=== PATIENT | male | born 1960 | race Caucasian/White ===

== ENCOUNTER 2017-12-16 08:42 | Emergency (ER) | payer OTHER ==
[2017-12-16 09:03] VITALS: BP 121/87
--- NOTE | 2017-12-16 09:29 | UC ---
Abdominal Pain Male HPI - HPI Summary HPI Summary: 56 yo male has had mild waxing and waning LLQ abd pain x 4 weeks 3-4 days ago the pain worsened and became constant yesterday he felt ill but no f/c (had malaise and mild myalgias) He has had diverticulitis x 2 and this feels similar never admitted for diverticulitis has had a colonoscopy - History of Current Complaint Chief Complaint: UCAbdominalPain Stated Complaint: ABD PAIN Time Seen by Provider: 12/16/17 09:14 Hx Obtained From: Patient Onset/Duration: Gradual Onset, Lasting Weeks Timing: Constant Severity Initially: Mild Severity Currently: Mild Pain Intensity: 4 Pain Scale Used: 0-10 Numeric Location: Discrete At: LLQ Radiates: No Character: Aching, Colicy Aggravating Factor(s): Other - touch Associated Signs And Symptoms: Positive: Negative Similar Episode/Dx As:: diverticulitis - Allergies/Home Medications Allergies/Adverse Reactions: Allergies Allergy/AdvReac Type Severity Reaction Status Date / Time No Known Allergies Allergy Verified 12/16/17 08:50 Home Medications: Home Medications Acetaminophen [Acetaminophen Extra Stren] 1 tab PO Q8HR PRN 12/16/17 [History Confirmed 12/16/17] Gabapentin CAP(*) [Neurontin 300 CAP(*)] 300 mg PO TID 12/16/17 [History Confirmed 12/16/17] LORazepam TAB(*) [Ativan 0.5 MG TAB (*)] 0.5 tab PO BID PRN 12/16/17 [History Confirmed 12/16/17] Lamotrigine [Lamictal] 25 mg PO BEDTIME 12/16/17 [History Confirmed 12/16/17] Olanzapine [Zyprexa] 1.25 mg PO BEDTIME 12/16/17 [History Confirmed 12/16/17] PMH/Surg Hx/FS Hx/Imm Hx Previously Healthy: Yes GI/ History: Diverticulitis Psychological History: Anxiety - Surgical History Surgical History: None - Family History Known Family History: Positive: Hypertension - Social History Alcohol Use: Weekly Alcohol Amount: "Few times weekly" Substance Use Type: Prescribed Smoking Status (MU): Never Smoked Tobacco Review of Systems Constitutional: Negative Skin: Negative Eyes: Negative ENT: Negative Respiratory: Negative Cardiovascular: Negative Gastrointestinal: Abdominal Pain Genitourinary: Negative Motor: Negative Neurovascular: Negative Musculoskeletal: Negative Neurological: Negative Psychological: Negative Is Patient Immunocompromised?: No All Other Systems Reviewed And Are Negative: Yes Physical Exam Triage Information Reviewed: Yes Appearance: Well-Appearing, No Pain Distress, Well-Nourished Vital Signs: Initial Vital Signs Temp 97.2 F 12/16/17 08:55 Pulse 80 12/16/17 08:55 Resp 18 12/16/17 08:55 BP 121/87 12/16/17 08:55 Pulse Ox 97 12/16/17 08:55 Vital Signs Reviewed: Yes Eyes: Positive: Conjunctiva Clear ENT: Positive: Hearing grossly normal. Negative: Nasal congestion, Nasal drainage, Trismus, Muffled voice, Hoarse voice Neck: Positive: Supple, Nontender Respiratory: Positive: Lungs clear, Normal breath sounds, No respiratory distress, No accessory muscle use Cardiovascular: Positive: RRR, No Murmur Abdomen Description: Positive: Soft. Negative: Nontender - markedly tender only LLQ, CVA Tenderness (R), CVA Tenderness (L), Hernia @, Peritoneal Signs, Pulsatile Mass, Splenomegaly Musculoskeletal: Positive: ROM Intact, No Edema Neurological Exam: Normal Neurological: Positive: Alert Psychological Exam: Normal Skin Exam: Normal Abd Pain Male Course/Dx - Course Course Of Treatment: pt declines CT at this point. states he will return for worsening symptoms - Differential Dx/Clinical Impression Provider Diagnoses: diverticulitis Discharge - Discharge Plan Condition: Stable Disposition: HOME Prescriptions: Ciprofloxacin TAB* [Cipro 750 MG Tab*] 750 mg PO BID #14 tab Metronidazole [Flagyl 500 MG TAB] 500 mg PO QID #28 tab Patient Education Materials: Diverticulitis (ED) Referrals: Anton Magaña MD [Primary Care Provider] - 1 Day Additional Instructions: to ER for new or worsening symptoms or if not significantly improved in 48-72 hours I suggest you get rechecked tomorrow. You may return here if unable to get in to see your MD.
[2017-12-16] MEDS ORDERED: Ciprofloxacin TAB* 500 MG PO ONE (09:30)
[2017-12-16] MEDS ORDERED: Ciprofloxacin TAB* 250 MG PO ONE (09:30)
[2017-12-16] MEDS ORDERED: metroNIDAZOLE TAB* 250 MG PO ONE ×2 (09:31→09:34)
== END 2017-12-16 10:01 | disposition home or self-care (01) ==
LOC: UCEAST 08:42
DX: K57.92 Diverticulitis of intestine, part unspecified, without perforation or abscess without bleeding (principal)
CPT/HCPCS: 81003; 99212; A9270-GY; G0463

== ENCOUNTER 2017-12-17 08:58 | Emergency (ER) | payer OTHER ==
[2017-12-17 09:17] VITALS: BP 121/78
--- NOTE | 2017-12-17 10:44 | UC ---
Abdominal Pain Male HPI - HPI Summary HPI Summary: seen here yesterday with provisional dx of diverticulitis returns here for re check states he feels michelle no n/v/d no f/c had 30 minutes of LLQ pain around 2 AM - History of Current Complaint Chief Complaint: UCAbdominalPain Stated Complaint: FOLLOW UP Time Seen by Provider: 12/17/17 09:37 Hx Obtained From: Patient Onset/Duration: Sudden Onset, Lasting Days Timing: Constant Severity Initially: Moderate Severity Currently: None Pain Intensity: 0 Pain Scale Used: 0-10 Numeric Location: Discrete At: LLQ - pain free usually unless he bends over or touches area - Allergies/Home Medications Allergies/Adverse Reactions: Allergies Allergy/AdvReac Type Severity Reaction Status Date / Time Seasonal Allergy Congestion Uncoded 12/17/17 09:17 PMH/Surg Hx/FS Hx/Imm Hx Previously Healthy: Yes GI/ History: Diverticulitis Psychological History: Anxiety - Surgical History Surgical History: None - Family History Known Family History: Positive: Hypertension - Social History Alcohol Use: Weekly Alcohol Amount: "Few times weekly" Substance Use Type: Prescribed Smoking Status (MU): Never Smoked Tobacco Review of Systems Constitutional: Negative Skin: Negative Eyes: Negative ENT: Negative Respiratory: Negative Cardiovascular: Negative Gastrointestinal: Abdominal Pain Genitourinary: Negative Motor: Negative Neurovascular: Negative Musculoskeletal: Negative Neurological: Negative Psychological: Negative Is Patient Immunocompromised?: No All Other Systems Reviewed And Are Negative: Yes Physical Exam Triage Information Reviewed: Yes Appearance: Well-Appearing, No Pain Distress, Well-Nourished Vital Signs: Initial Vital Signs Temp 98.2 F 12/17/17 09:13 Pulse 71 12/17/17 09:13 Resp 18 12/17/17 09:13 BP 121/78 12/17/17 09:13 Pulse Ox 99 12/17/17 09:13 Vital Signs Reviewed: Yes ENT: Positive: Hearing grossly normal. Negative: Nasal congestion, Nasal drainage, Trismus, Muffled voice, Hoarse voice Neck: Positive: Supple, Nontender Respiratory: Positive: Lungs clear, Normal breath sounds, No respiratory distress, No accessory muscle use Cardiovascular: Positive: RRR, No Murmur Abdomen Description: Positive: Nontender - LLQ, Other: - able to jump up and down without significant pain. Negative: Distended, Guarding, Peritoneal Signs , Pulsatile Mass, Splenomegaly Bowel Sounds: Positive: Present Neurological Exam: Normal Neurological: Positive: Alert Psychological Exam: Normal Skin Exam: Normal Abd Pain Male Course/Dx - Differential Dx/Clinical Impression Provider Diagnoses: recheck LLQ abdominal pain. presumed diverticulitis Discharge - Discharge Plan Condition: Stable Disposition: HOME Referrals: Anton Magaña MD [Primary Care Provider] - (I suggest recheck next week) Additional Instructions: to ER for new or worsening symptoms
== END 2017-12-17 09:46 | disposition home or self-care (01) ==
LOC: UCEAST 08:58
DX: R10.32 Left lower quadrant pain (principal); K57.92 Diverticulitis of intestine, part unspecified, without perforation or abscess without bleeding; F41.9 Anxiety disorder, unspecified
CPT/HCPCS: 99211; G0463

== ENCOUNTER 2017-12-21 08:55 | Emergency (ER) | payer OTHER ==
[2017-12-21 09:06] VITALS: BP 124/87
--- NOTE | 2017-12-21 09:42 | UC ---
Abdominal Pain Male HPI - HPI Summary HPI Summary: Patient presents with 5 day onset lower abdominal pain. He has been on Cipro and Flagyl and not any better. He was told that is he is not better by Wednesday he would have to go to the ER. He states his symptoms come and go, he denies recorded fevers but at time feels warm. His abdominal pain got much worse yesterday so he put himself on a clear liquid diet and that did not help. He reports normal BM today, with no rectal bleeding, vomiting or diarrhea. - History of Current Complaint Chief Complaint: UCAbdominalPain Stated Complaint: ABD PAIN Time Seen by Provider: 12/21/17 09:28 Hx Obtained From: Patient Onset/Duration: Gradual Onset Timing: Constant Pain Intensity: 4 Location: Discrete At: LLQ Radiates: No Character: Sharp Aggravating Factor(s): Food Alleviating Factor(s): Nothing Associated Signs And Symptoms: Positive: Negative - Risk Factors Testicular Torsion: Negative Cardiac Risk Factors: Negative - Allergies/Home Medications Allergies/Adverse Reactions: Allergies Allergy/AdvReac Type Severity Reaction Status Date / Time Seasonal Allergy Congestion Uncoded 12/21/17 09:00 PMH/Surg Hx/FS Hx/Imm Hx Previously Healthy: Yes GI/ History: Gastroesophageal Reflux Psychological History: Anxiety - Surgical History Surgical History: None - Family History Known Family History: Positive: Hypertension - Social History Occupation: Employed Full-time Lives: With Family Alcohol Use: Weekly Alcohol Amount: "Few times weekly" Substance Use Type: None, Prescribed Smoking Status (MU): Never Smoked Tobacco Review of Systems Constitutional: Negative Skin: Negative Eyes: Negative ENT: Negative Respiratory: Negative Cardiovascular: Negative Gastrointestinal: Abdominal Pain Genitourinary: Negative Motor: Negative Neurovascular: Negative Musculoskeletal: Negative Neurological: Negative Psychological: Negative Is Patient Immunocompromised?: No All Other Systems Reviewed And Are Negative: Yes Physical Exam Triage Information Reviewed: Yes Appearance: Well-Appearing Vital Signs: Initial Vital Signs Temp 97.5 F 12/21/17 09:00 Pulse 70 12/21/17 09:00 Resp 20 12/21/17 09:00 BP 124/87 12/21/17 09:00 Pulse Ox 98 12/21/17 09:00 Vital Signs Reviewed: Yes Eye Exam: Normal ENT Exam: Normal Neck exam: Normal Neck: Positive: 1 Respiratory Exam: Normal Cardiovascular Exam: Normal Abdomen Description: Positive: Other: - LLQ tenderness on palpation without guarding, rebound or HSM, or CVAT. Musculoskeletal Exam: Normal Neurological Exam: Normal Psychological Exam: Normal Skin Exam: Normal Abd Pain Male Course/Dx - Course Course Of Treatment: Patient presents with 5 day onset LLQ abdominal pain, presumed to be diverticulitis. He has been on Cipro and Flagy without much improvement. He admits that he was told alisha tif he was not any better by Wednesday to go to the ER and he presents to the walk-in clinic again this morning. I have referred his directly to the ER for evaluation. His is her and can drive him at this time. - Differential Dx/Clinical Impression Differential Diagnosis/HQI/PQRI: Other - abdominal pain Provider Diagnoses: adominal pain Discharge - Discharge Plan Condition: Stable Disposition: OTHER Discharge Disposition Comment: go directly to the ER Patient Education Materials: Acute Abdominal Pain (DC) Referrals: Anton Magaña MD [Primary Care Provider] - Additional Instructions: go directly to the er .
== END 2017-12-21 09:38 ==
LOC: UCEAST 08:55
DX: R10.32 Left lower quadrant pain (principal); K21.9 Gastro-esophageal reflux disease without esophagitis; F41.9 Anxiety disorder, unspecified; J30.9 Allergic rhinitis, unspecified
CPT/HCPCS: 99212; G0463

== ENCOUNTER 2017-12-21 10:01 | Emergency (ER) | payer OTHER ==
[2017-12-21] MEDS ORDERED: Ketorolac INJ* 30 MG/ML 1 ML VIAL IV ONE (12:37)
--- NOTE | 2017-12-21 12:39 | ED ---
Abdominal Pain/Male - HPI Summary HPI Summary: 57 male presents to ED with complaints of LLQ abdominal pain that began weeks ago however has been becoming more frequent and intense over the past week. Patient states the pain is intermittent, comes and goes. Has not related it to anything. Thinks when he eats the pain may increase some and when he goes to the bathroom pain decreases. Has not related the pain to any specific food. Has been eating a bland/liquid diet for the the past few days. Was seen at 5 days ago and diagnosed with diverticulitis without labs/imaging just clinically , prescribed cipro/flagyl. Patient denies fever/chills, nausea, vomiting. Was having normal bowel movements, without blood until starting cipro/flagyl which his stools have no been loose. Denies taking pain medication other than tylenol and heating pad with some relief. Has been diagnosed with diverticulitis/ diverticulosis in the past years. PMHx includes anxiety and GERD. No other complaints, no chest pain, urinary symptoms or trouble radiation of pain. Was told by provider if not better or worse in 72 hours to come to ED. Went to again today however was told to come to ED for further imaging/labs. - History of Current Complaint Chief Complaint: EDAbdPain Stated Complaint: ABD PAIN/SENT FROM Time Seen by Provider: 12/21/17 10:40 Hx Obtained From: Patient Onset/Duration: Sudden Onset, Lasting Weeks, Still Present, Worse Since Timing: Intermittent, Lasting Seconds Severity Initially: Mild Severity Currently: Moderate Pain Intensity: 7 Pain Scale Used: 0-10 Numeric Location: Discrete At: LLQ Radiates: No Character: Sharp - aching, Dull Aggravating Factor(s): Nothing Alleviating Factor(s): Nothing, Position - possibly laying for long periods of time makes it worse? Associated Signs And Symptoms: Positive: Diarrhea - loose stools for 4 days since starting cipro/fagyl. Negative: Fever, Chest Pain, Constipation, Blood in Stool, Urinary Symptoms, Nausea, Vomiting - Allergies/Home Medications Allergies/Adverse Reactions: Allergies Allergy/AdvReac Type Severity Reaction Status Date / Time MS Bee Venom Allergy Intermediate Swelling Verified 12/21/17 12:56 Seasonal Allergy Congestion Uncoded 12/21/17 09:00 PMH/Surg Hx/FS Hx/Imm Hx Endocrine/Hematology History: Denies: Hx Diabetes, Hx Thyroid Disease Cardiovascular History: Denies: Hx Hypertension, Hx Pacemaker/ICD Respiratory History: Denies: Hx Asthma, Hx Chronic Obstructive Pulmonary Disease (COPD) GI History: Reports: Hx Gastroesophageal Reflux Disease Denies: Hx Ulcer History: Denies: Hx Renal Disease Sensory History: Denies: Hx Hearing Aid Psychiatric History: Reports: Hx Anxiety - severe Denies: Hx Panic Disorder - Surgical History Surgery Procedure, Year, and Place: n/a, no abdominal surgeries - Immunization History Immunizations Up to Date: Yes Infectious Disease History: No Infectious Disease History: Denies: Hx Hepatitis, Hx Human Immunodeficiency Virus (HIV), Traveled Outside the [place] in Last 30 Days - Family History Known Family History: Positive: Hypertension - Social History Alcohol Use: Weekly Alcohol Amount: "Few times week - 2 DRINKS A TIME Substance Use Type: Reports: Marijuana, Prescribed - benzo Substance Use Comment - Amount & Last Used: MARIJ[place]NA IN THE PAST Smoking Status (MU): Never Smoked Tobacco Review of Systems Constitutional: Negative Cardiovascular: Negative Respiratory: Negative Positive: Abdominal Pain, Diarrhea Musculoskeletal: Negative Skin: Negative Neurological: Negative All Other Systems Reviewed And Are Negative: Yes Physical Exam Triage Information Reviewed: Yes Vital Signs On Initial Exam: Initial Vitals Temp Pulse Resp BP Pulse Ox 97.5 F 80 18 157/94 97 12/21/17 10:02 12/21/17 10:02 12/21/17 10:02 12/21/17 10:02 12/21/17 10:02 improved once given results of testing and calmer Vital Signs Reviewed: Yes Appearance: Positive: Well-Appearing, No Pain Distress, Well-Nourished Skin: Positive: Warm, Skin Color Reflects Adequate Perfusion, Dry. Negative: Cold, Soft, Cyanosis @, Pale, Erythema @ Head/Face: Positive: Normal Head/Face Inspection Eyes: Positive: Conjunctiva Clear ENT: Positive: Hearing grossly normal, Pharynx normal Neck: Positive: Supple, Nontender Respiratory/Lung Sounds: Positive: Clear to Auscultation, Breath Sounds Present. Negative: Rales, Rhonchi, Wheezes Cardiovascular: Positive: Normal, RRR, Pulses are Symmetrical in both Upper and Lower Extremities. Negative: Murmur, Rub Abdomen Description: Positive: No Organomegaly, Soft, Guarding, Other: - tender to palpation of LLQ over sigmoid colon area and RLQ. Negative: CVA Tenderness ( R), CVA Tenderness (L), Distended, McBurney's Point Tenderness, Peritoneal Signs Bowel Sounds: Positive: Present Musculoskeletal: Positive: Normal, Strength/ROM Intact Neurological: Positive: Normal, Sensory/Motor Intact, Alert, Oriented to Person Place, Time Diagnostics - Vital Signs Vital Signs Temp Pulse Resp BP Pulse Ox 12/21/17 11:00 74 134/75 96 12/21/17 10:51 73 96 12/21/17 10:50 134/79 12/21/17 10:02 97.5 F 80 18 157/94 97 - Laboratory Result Diagrams: 12/21/17 13:08 12/21/17 13:08 Lab Statement: Any lab studies that have been ordered have been reviewed, and results considered in the medical decision making process. - CT abd/pelvis w CT Interpretation: No Acute Changes - 1. NO EVIDENCE FOR ACUTE FINDING OR CAUSE FOR THE PATIENT'S ABDOMINAL PAIN IS SEEN. 2. THE LEFT KIDNEY IS LOCATED IN THE PELVIS JUST ABOVE THE URINARY BLADDER. 3. HEPATIC STEATOSIS. CT Interpretation Completed By: Radiologist Re-Evaluation - Re-Evaluation First Eval Re-Evaluation Time: 14:00 Change: Improved - no pain throughout stay, updated on labs, waiting for CT Abdominal Pain Fem Course/Dx - Course Course Of Treatment: given toradol and fluids, with relief. labs obtained and normal. slightly elevated LFT's not of concern at this time. Ct abd/pelvis obtained and negative for etiology of LLQ pain. Patient denies any other pain or complaints. normal vitals and physical exam otherwise. patient appears to be a very anxious person. normal urinalysis. does show diverticulosis in sigmoid colon however no infection or colitis. possible had beginning stages and cipro/ flagyl cured? Muscular or bowel/gas etiology? no concern for other etiology at this time for patients symptoms. follow up with pcp/GI. aware of worsening signs and symptoms to watch out for. high fiber diet BRAT and avoid nuts/seeds/ grains. Increase fluid intake. recommended taking ibuprofen rather than tylenol starting tomorrow to see if better relief if pain returns or does not go away. return to ED if symptoms continue or worsen or new develop. patient thouroughly educated and agrees and understands plan/results. - Diagnoses Differential Diagnosis/HQI/PQRI: Constipation, Diverticulitis, Other - diverticulosis, abdominal pain, gas pain Provider Diagnoses: LLQ abdominal pain Discharge - Discharge Plan Condition: Improved Disposition: HOME Patient Education Materials: Acute Abdominal Pain (DC) Referrals: Oc Loya MD [Medical Doctor] - Anton Magaña MD [Primary Care Provider] - Additional Instructions: Finish up last 2 days of antibiotic. Increase fluids, stick to bland diet, bananas, rice, applesauce, toast. Any new or worsening symptoms please seek medical attention. Follow up with PCP and GI.
[2017-12-21 13:23] LABS: ABS Basophils 0 10^3/ul (0-0.2); ABS Eosinophils 0 10^3/ul (0-0.6); ABS Lymphocytes 1.3 10^3/ul (1.0-4.8); ABS Monocytes 0.4 10^3/ul (0-0.8); ABS Nucleated RBC 0 10^3/ul; Eosinophil % 0.5 % (0-6); Hematocrit 43 % (42-52); Hemoglobin 14.7 g/dl (14.0-18.0); Lymphocyte % 19.5 % (25-47); Mean Corpuscular HGB Conc 34 g/dl (31-36); Mean Corpuscular Hemoglobin 29 pg (27-31); Mean Corpuscular Volume 84 fL (80-94); Mean Platelet Volume 8 um3 (7.4-10.4); Nucleated Red Blood Cells % 0; Platelet Count 224 10^3/ul (150-450); Red Blood Count 5.15 10^6/ul (4.0-5.4); Red Cell Distribution Width 14 % (10.5-15); White Blood Count 6.8 10^3/ul (3.5-10.8)
[2017-12-21 13:34] LABS: EGFR Non-African American 75.3 (>60)
[2017-12-21 13:44] LABS: Urine Appearance Clear; Urine Blood Negative (Negative); Urine Color Yellow; Urine Ketones Negative (Negative); Urine Protein Negative (Negative); Urine Specific Gravity 1.005 (1.010-1.030); Urine Urobilinogen Negative (Negative)
[2017-12-21] MEDS ORDERED: Iohexol 300* (CONTRAST) 10 ML SDV IV ONE (14:06)
--- NOTE | 2017-12-21 15:27 | RAD ---
INDICATION: Right and left lower quadrant pain evaluate for diverticulitis. COMPARISON: There are no prior studies available for comparison. TECHNIQUE: A CT scan of the abdomen and pelvis was performed with intravenous and oral contrast following intravenous injection of 124 ml of Omnipaque 300 nonionic contrast. Contiguous axial sections were obtained from the lung bases through the symphysis pubis. Images were reconstructed in the coronal and sagittal planes. FINDINGS: The lung bases are clear. No pleural effusion is present. The liver and spleen are normal in size without significant focal abnormality. The liver is decreased in attenuation consistent with fatty infiltration. No calcified gallstones are seen. The pancreas appears to be within normal limits. The adrenal glands appear to be within normal limits. The kidneys are normal in size. The left kidney is ptotic in position located just above the urinary bladder. No renal calculi or hydronephrosis is seen. The aorta is normal in caliber and demonstrates homogeneous contrast opacification. No significant enlarged retroperitoneal lymph nodes are seen. There is a small hiatal hernia. The stomach, small and large bowel appear nondistended. The appendix is within normal limits. There is mild descending and sigmoid diverticulosis without evidence for diverticulitis or colitis. No free intraperitoneal air or fluid is seen. No significant focal osseous abnormality is seen. IMPRESSION: 1. NO EVIDENCE FOR ACUTE FINDING OR CAUSE FOR THE PATIENT'S ABDOMINAL PAIN IS SEEN. 2. THE LEFT KIDNEY IS LOCATED IN THE PELVIS JUST ABOVE THE URINARY BLADDER. 3. HEPATIC STEATOSIS.
[2017-12-21 16:55] VITALS: BP 111/78
== END 2017-12-21 17:03 | disposition home or self-care (01) ==
LOC: ED 10:01
DX: R10.32 Left lower quadrant pain (principal); K76.0 Fatty (change of) liver, not elsewhere classified
CPT/HCPCS: 36415; 74177; 80053; 81003; 81015; 83605; 83690; 85025; 86140; 87086; 96374; 99283; J1885; Q9967

== ENCOUNTER 2018-02-15 08:16 | Emergency (ER) | payer OTHER ==
--- OUTSIDE RECORDS SUMMARY | 2018-02-15 08:27 | XMS REPORT ---
:1960 External Reference #:[id number] Author Organization [facility] Address [address] [place] [address] Phone [phone] Care Team Providers Name Role Phone HCP given Primary Care Physician Unavailable Payers Type Date Identification Numbers Payment Provider Subscriber Commercial Effective: Policy Number: [id number] [facility] Wendy Murcia 2013 Group Number: [id number] [id number] PayID: [id number] [place] [address] Problems Date Description Provider Status Onset: 09/21/2014 Deep venous thrombosis of peroneal Anton Finch M.D. Active vein Onset: 09/21/2014 Anxiety state Anton Finch M.D. Active Onset: 08/12/2012 [place]'s esophagus Anton Finch M.D. Active Onset: 08/12/2012 Obesity Anton Finch M.D. Active Onset: 12/31/2008 Gastroesophageal reflux disease Roxanne Cheng MD Active Onset: 12/31/2008 Pure hypercholesterolemia Roxanne Cheng MD Active Family History Date Family Member(s) Problem(s) Comments General Melanoma father and brother General Pulmonary Embolism brother General Neuropathy 4 people on maternal side suffer from "neuropathy" incl mat aunt who he knows does not have DM. Father Hypertension : Father due to Natural Causes D/C states (05/03/2015) aspiration pneumonia; pt questions if it was related to stopping gabapentin too quickly Father Colon Polyps Father Atrial Fibrillation Onset: Father Melanoma (11/2011) Father DVT Mother Endometrial Cancer Mother Hypercholesterolemia First Son Al First Son 6-7-01 Number of Siblings Siblings: 2 (brothers) Social History Type Date Description Comments Education Highest level of education completed is a bachelor's degree Marital Status Patient is Diet Diet has been high in fast food and eggs. 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 [facility] Employment Currently working; stressful situation because of general dec in industry as well as recent new competition in neighbourhood that he feels he played a part in allowing to happen Cigarette Use 10/26/2014 Never Smoked Cigarettes ETOH Use Currently consumes alcohol mainly on weekends; on avg 2 drinks/day Recreational Drug Use Former Drug User Smoking Patient has never smoked Daily Caffeine Consumes on average 1 soda per day Sun Exposure Uses sunscreen Seat Belt/Car Seat Always uses a seat belt Additional Info Sexual preference is women Allergies, Adverse Reactions, Alerts Date Description Reaction Status Severity Comments 12/06/2015 Paxmillie [place] like he was lit up active 01/31/2008 NKDA inactive Medications Medication Date Status Form Strength Qnty SIG Indications Ordering Provider Lorazepam Active Tablets 0.5mg 30tabs 11/25-11/23 F41.9 Silcoff, 018 tablets Anton, every 4hrs M.D. as needed for anxiety or agitation Seroquel XR Active Tablets ER 50mg 1 qam, 2 Unknown 018 24HR QHS Bentyl Active Capsules 10mg Unknown 018 Seroquel Active Tablets 25mg 1/2 tab by F41.9 Unknown 018 mouth every 4 hours as needed for anxiety and sleep G47.00 Gabapentin 06/25/2017 Active Capsules 100mg 180caps 2 capsules by M79.606 Silcoff, mouth 3x/day; Wyatt Walton for leg pains M79.2 Allergy 04/05/2017 Active Tablets 10mg as directed Unknown Vitamin B12 10/15/2015 Active 500mcg take 500mcg Unknown 2x/day Atorvastatin 08/22/2015 Active Tablets 10mg 90ta take 1 tablet E78. Silcoff, Calcium bs by mouth once 0 Anton, daily for M.D. cholesterol Magnesium 05/14/2015 Active Tablets 250mg 1 by mouth Unknown every day Pantoprazole 09/04/[address] 1 tab po bid 530. Christian, Sodium 81 MD Kevan 530.85 L-Threonine Active Tablets 2 daily Unknown Azithromycin 10/07/2017 - Hx Tablets 250mg 6tab take 2 J20. Sopchak, 10/12/2017 s tablets by 9 Mc, D.O. mouth one time on the first day then take 1 tablet by mouth daily for 4 days Amoxicillin/Clavu 08/03/2017 - Hx Tablets 875-1 20ta 1 by mouth Gómez, lanate Potassium 08/13/2017 25mg bs twice a day Anton, for sinus M.D. infection Dyazide 07/23/2017 - Hx Capsules 37.5- 30ca 1 by mouth H81. Silcoff, 01/31/2018 25mg ps every morning Anton, for suspected M.D. Meniere's disease Lorazepam 07/20/2017 - Hx Tablets 0.5mg take 11/23 F41. Unknown 02/01/2018 tablet 9 (sublingually ) up to 4x/day as needed for panic attacks Olanzapine 07/20/2017 - Hx Tablets 2.5mg take 11/23 F41. Unknown 01/31/2018 tablet by 9 mouth at bedtime, for sleep R45.1 G47.00 Amoxicillin 07/12/2017 - Hx Tablets 500mg 60tabs 2 by mouth J01.90 Gómez, 07/22/2017 three times a Anton, day for 10 M.D. days for sinusitis PT For Vertigo 06/21/2017 - Hx please R42 Gómez, (BPV) 06/25/2017 evaluate and Anton, treat M.D. Amoxicillin 04/06/2017 - Hx Tablets 500mg 60tabs 2 by mouth J06.9 Silcoff, 04/20/2017 three times a Anton, day for 10 M.D. days for sinusitis; start this only if symptoms not improving by next week Amoxicillin 09/18/2016 - Hx Tablets 500mg 60tabs 2 by mouth J01.90 Bessiecoff, 09/28/2016 three times a Anton, day for 10 M.D. days for sinusitis Gabapentin 06/23/2016 - Hx Capsules 100mg 100caps use as M79.2 Gómez, 06/07/2017 directed, up Anton, to 6 M.D. pills/day; to be used along with 300mg gabapentin pills Gabapentin 05/21/2016 - Hx Capsules 300mg 90caps 1 cap by mouth M79.606 Silcoff, 06/25/2017 three times a Anton, day for M.D. neuropathic pain in legs M79.2 Escitalopram 12/05/2015 - Hx Tablets 10mg 1/2 by mouth F41.9 Silcoff, Oxalate 06/22/2016 every day; for Anton, mood M.D. Escitalopram 10/16/2015 - Hx Tablets 10mg 90t 1 by mouth F41.9 Silcoff, Oxalate 12/05/2015 abs every day for Anton, mood (starting M.D. the week after gi) Escitalopram 05/15/2015 - Hx Tablets 5mg 90t 1 by mouth F41.9 Silcoff, Oxalate 10/16/2015 abs every day; for Anton, anxiety M.D. Escitalopram 04/19/2015 - Hx Tablets 5mg 30t 1/2 tab by 300.00 Silcoff, Oxalate 05/15/2015 abs mouth every Anton, day to start; M.D. for mood; increase to 1 pill daily after 1-2 weeks if tolerating it well Gabapentin 02/25/2015 - Hx Capsules 300mg 120 1 by mouth M79.606 Silcoff, 05/21/2016 cap 3x/day; once jesusita Walton acclimated to M.D. this dose, increase the night time dose to 2 pills. Atorvastatin 02/25/2015 - Hx Tablets 10mg 45t 1/2 tab by 272.0 Silcoff, Calcium 08/22/2015 abs mouth every Anton, day for M.D. cholesterol Amoxicillin 02/22/2015 - Hx Capsules 500mg 20c 1 by mouth 461.2 Ramírez A. 03/04/2015 aps twice a day Gabe, for 10 days M.D. Gabapentin 02/12/2015 - Hx Capsules 300mg 60c 1 by mouth 729.5 Silcoff, 02/25/2015 aps 2x/day for leg Anton, pain M.D. Gabapentin 01/15/2015 - Hx Capsules 300mg 60c 1 by mouth 729.5 Silcoff, 02/12/2015 aps every night at [place], bedtime for M.D. 2-3 days then 1 by mouth twice a day Clonazepam 10/31/2014 - Hx Tablets 0.5mg 45t take up to 2 F41.9 Silcoff, 06/07/2017 abs tab by mouth Anton three times a M.D. day as needed for anxiety; this medication is sedating; use sparingly Dicyclomine HCL 10/26/2014 - Hx Capsules 10mg 60c 1-2 by mouth 789.06 Silcoff, 06/22/2016 aps three times a Anton, day as needed M.D. for abdominal pain Buspirone HCL 09/21/2014 - Hx Tablets 5mg 90t 1 by mouth 300.00 Silcoff , 11/02/2014 abs twice a day Anton for anxiety; M.D. increase to 3x/day after 3wks Warfarin Sodium 09/15/2014 - Hx Tablets 1mg 100 take as Silcoff, 12/25/2014 tab directed; up jesusita Walton to 4 tablets M.D. in a day Warfarin Sodium 09/05/2014 - Hx Tablets 5mg 100 take as 453.42 Silcoff, 12/25/2014 tab directed, jesusita Walton starting with M.D. 1 pill nightly; adjust dose as directed; Enoxaparin 09/05/2014 - Hx Solution 100mg/m 10u 1 injection 453.42 Silcoff, Sodium 09/15/2014 l nit every 12 hours jesusita Walton for blood clot M.D. Compression 09/05/2014 - Hx Knee 2un Wear on Left 453.42 Silcoff, Stockings 30-40 09/05/2015 High its leg at all Anton mm HG times (exc for M.D. bathing) Pantoprazole 08/08/2012 - Hx Tablets 30t 1 tab po qam, Unknown Sodium 09/04/2014 abs 20min before breakfast Clindamycin HCL 01/30/2012 - Hx Capsules 300mg 30c 1 tab po t.i.d 461.1 Gómez, 08/10/2012 aps x 10d Wyatt Walton Pepcid 12/27/2011 - Hx Tablets 20mg 1 tablet 530.81 Silcoff, 08/25/2014 3x/day w/ Anton meals for acid M.D. reflux Abdoulaye-Red Krill 12/27/2011 - Hx 300mg one daily Unknown Oil 09/04/2014 Amoxicillin 12/25/2011 - Hx Tablets 500mg 60t 2 by mouth 461.1 Silcoff, 01/04/2012 abs three times a Anton, day for 10 M.D. days for sinusitis 461.0 Azithromycin 11/17/2011 - Hx Tablets 250mg 6tabs 2 by mouth 465.9 Silcoff, 11/22/2011 on day Anton, then 1 by M.D. mouth daily for 4 more days Christal Olmos 01/30/2010 - Hx Capsules 100mg 30caps 1 q4h prn 786.2 Silcoff, 11/16/2011 cough Wyatt Walton Codiene With 01/30/2010 - Hx 75ml 1-2 tsp q6 786.2 Silcoff, Guaifenesin 11/16/2011 ML hrs, Anton, evening M.D. and night Proair HFA, 01/30/2010 - Hx Aerosol 108(90Ba 1units 2 puff q 786.2 Silcoff, Alternative Ok 11/16/2011 se) 4-6 hrs, Anton, mcg/ac prn M.D. Clarithromycin 01/10/2010 - Hx 250mg 20units 1 po bid Ramírez Parker 01/20/2010 until niurka Bernal M.D. use this instead of the brand name Christal Olmos 01/10/2010 - Hx Capsules 100mg 30caps 1 q4h prn 786.2 Ramírez Parker 01/20/2010 lindsey Bernal M.D. Aleve 12/31/2008 - Hx Tablets 220mg 2 am, 2pm 726.32 Prosper, 09/04/2014 prn Roxanne PADILLA 604.90 Levaquin 12/18/2008 - Hx Tablets 500mg 14tabs 1 po once 604.90 Prosper, 12/31/2008 daily as Roxanne PADILLA directed Doxycycline 11/27/2008 - Hx 100mg 28units one tablet 604.90 Prosper, 12/11/2008 po bid Roxanne PADILLA Azithromycin 10/12/2008 - Hx Tablets 250mg 6Tabs 2 Tablet PO 461.1 Prosper, 10/17/2008 Day 1, Then Roxanne PADILLA One Tablet PO Day 2-5. Nabumetone 08/14/2008 - Hx Tablets 750mg 50tabs one tablet 726.32 Prosper, 12/31/2008 po bid prn Roxanne PADILLA for pain Zithromax Z-Jimy 07/12/2008 - Hx Tablets 250mg 1Pack 2 Tablets PO Prosper, 07/17/2008 Day 1, Then Roxanne PADILLA One Tablet PO Day 2 To 5 Levaquin 02/28/2008 - Hx Tablets 500mg Samples 1 PO Once 461.0 Prosper, 03/09/2008 Daily as Roxanne PADILLA Directed Trazodone HCL 02/28/2008 - Hx Tablets 50mg 30tabs one half to 780.52 Shirleyisaura, 11/16/2011 one tablet Roxanne PADILLA po qhs prn as directed for insomnia Augmentin 01/31/2008 - Hx Tablets 875mg 20tabs one tablet 461.0 Prosper, 02/10/2008 p.O. twice Roxanne PADILLA daily with food Zithromax Z-Jimy 09/30/2007 - Hx Tablets 250mg 1Pack 2 PO On Day Silcoff, 10/05/2007 1, 1 PO On Anton, Days 2-5 M.D. Benzonatate 09/09/2007 - Hx Capsules 100mg 30caps 1-2 PO tid 786.2 Silcoff, 09/19/2007 prn For Anton, Cough M.D. Pepcid ac 09/24/2006 - Hx Tablets 10mg 1 PO bid 530.81 Prosper, 12/27/2011 Roxanne PADILLA Motrin 09/24/2006 - Hx Capsules 200mg 2 Tab Taken Prosper, 08/14/2008 This Am For Roxanne PADILLA Head Pain Immunizations CPT Code Status Date Vaccine Lot # [id number] Given 07/23/2017 Influenza Virus Vaccine, Quadrivalent, Split, [id number] Preservative Free U-Flu Given 11/03/2016 Influenza,Unspecified U-Flu Given 09/09/2015 Influenza,Unspecified [id number] Given 09/21/2014 Flu, Split Virus 3Yrs [id number] Given 10/03/2013 Flu, Split Virus 3Yrs [id number] Given 08/30/2012 Flu, Split Virus 3Yrs [id number] Given 12/28/2011 Adacel or Boostrix, TDaP [id number] Given 08/06/2011 Flu, Split Virus 3Yrs 67545 Given 09/24/2006 Flu, Split Virus 3Yrs Vital Signs Date Vital Result Comment 02/01/2018 BP Systolic 112 mmHg BP Diastolic 72 mmHg Weight 186.00 lb 10/07/2017 BP Systolic 108 mmHg BP Diastolic 72 mmHg O2 % BldC Oximetry 97 % Body Temperature 97.8 F Height 68 inches 5'8" Weight 200.00 lb BMI (Body Mass Index) 30.4 kg/m2 07/23/2017 BP Systolic 124 mmHg BP Diastolic 76 mmHg Weight 204.00 lb 06/25/2017 BP Systolic 110 mmHg BP Diastolic 70 mmHg Weight 200.00 lb 06/08/2017 BP Systolic 120 mmHg BP Diastolic 72 mmHg Heart Rate 80 /min reg Respiratory Rate 12 /min not laboured Weight 203.00 lb 04/06/2017 BP Systolic 112 mmHg BP Diastolic 68 mmHg Respiratory Rate 14 /min not laboured Body Temperature 98.2 F Weight 205.00 lb w/shoes 03/03/2017 BP Systolic 118 mmHg BP Diastolic 80 mmHg Weight 202.00 lb w/shoes 12/28/2016 BP Systolic 116 mmHg BP Diastolic 76 mmHg Height 69 inches 5'9" Weight 205.00 lb BMI (Body Mass Index) 30.3 kg/m2 09/18/2016 BP Systolic 124 mmHg BP Diastolic 60 mmHg Body Temperature 98.3 F Weight 217.00 lb 06/23/2016 BP Systolic 122 mmHg BP Diastolic 80 mmHg Height 69.25 inches 5'9.25" with sneakers Weight 221.00 lb with sneakers BMI (Body Mass Index) 32.4 kg/m2 12/06/2015 BP Systolic 130 mmHg BP Diastolic 70 mmHg Weight 216.00 lb 10/16/2015 BP Systolic 118 mmHg BP Diastolic 70 mmHg Weight 217.00 lb with sneakers 07/17/2015 BP Systolic 126 mmHg BP Diastolic 80 mmHg Weight 212.00 lb w/shoes 05/15/2015 BP Systolic 110 mmHg BP Diastolic 66 mmHg Weight 207.00 lb shoes on 04/19/2015 BP Systolic 122 mmHg BP Diastolic 66 mmHg Weight 204.00 lb shoes on 02/25/2015 BP Systolic 130 mmHg BP Diastolic 80 mmHg 02/22/2015 BP Systolic 120 mmHg BP Diastolic 80 mmHg Body Temperature 98.2 F Height 68.25 inches 5'8.25" Weight 209.00 lb w/shoes BMI (Body Mass Index) 31.5 kg/m2 01/15/2015 BP Systolic 120 mmHg BP Diastolic 76 mmHg Weight 203.00 lb w/shoes 11/27/2014 BP Systolic 133 mmHg BP Diastolic 80 mmHg Weight 209.00 lb shoes on 10/31/2014 BP Systolic 114 mmHg BP Diastolic 76 mmHg Heart Rate 76 /min reg Respiratory Rate 14 /min not laboured Weight 209.00 lb shoes on 10/26/2014 BP Systolic 120 mmHg BP Diastolic 84 mmHg Weight 209.00 lb 09/21/2014 BP Systolic 130 mmHg BP Diastolic 98 mmHg BP Systolic Recheck 128 mmHg R arm sitting BP Diastolic Recheck 90 mmHg R arm sitting Heart Rate 72 /min reg Body Temperature 98.0 F Weight 214.00 lb 09/14/2014 BP Systolic 134 mmHg BP Diastolic 78 mmHg Weight 218.00 lb shoes on 09/05/2014 BP Systolic 130 mmHg BP Diastolic 92 mmHg Height 68.25 inches 5'8.25" Weight 218.00 lb BMI (Body Mass Index) 32.9 kg/m2 08/12/2012 BP Systolic 130 mmHg BP Diastolic 80 mmHg Weight 214.00 lb Last Menstrual Period 0 03/30/2012 BP Systolic 116 mmHg BP Diastolic 78 mmHg Weight 205.00 lb 01/30/2012 BP Systolic 129 mmHg BP Diastolic 60 mmHg Heart Rate 76 /min Body Temperature 98.3 F Weight 208.00 lb Last Menstrual Period 0 12/28/2011 BP Systolic 108 mmHg BP Diastolic 76 mmHg Heart Rate 78 /min reg Respiratory Rate 12 /min not laboured 12/25/2011 BP Systolic 118 mmHg BP Diastolic 78 mmHg Body Temperature 97.5 F Height 68.50 inches 5'8.50" Weight 209.00 lb BMI (Body Mass Index) 31.3 kg/m2 11/17/2011 BP Systolic 100 mmHg BP Diastolic 68 mmHg Heart Rate 84 /min reg Respiratory Rate 12 /min not laboured Body Temperature 97.9 F Weight 209.00 lb Last Menstrual Period 0 01/30/2010 BP Systolic 122 mmHg BP Diastolic 78 mmHg Body Temperature 98.4 F Weight 212.00 lb Last Menstrual Period 0 01/10/2010 BP Systolic 120 mmHg BP Diastolic 68 mmHg Heart Rate 80 /min Respiratory Rate 16 /min O2 % BldC Oximetry 97 % @rest; then 97-98 w/amb, 98% after Body Temperature 98.1 F Weight 213.00 lb Last Menstrual Period 0 10/01/2009 BP Systolic 110 mmHg BP Diastolic 78 mmHg Body Temperature 97.9 F Weight 214.00 lb Last Menstrual Period 0 08/09/2009 BP Systolic 116 mmHg BP Diastolic 60 mmHg Body Temperature 98.1 F 100 at home Weight 215.00 lb 12/31/2008 BP Systolic 142 mmHg BP Diastolic 82 mmHg BP Systolic Recheck 124 mmHg BP Diastolic Recheck 82 mmHg Height 68.5 inches 5'8.50" Weight 218.00 lb BMI (Body Mass Index) 32.7 kg/m2 12/18/2008 BP Systolic 106 mmHg BP Diastolic 60 mmHg Body Temperature 98.2 F 11/27/2008 BP Systolic 106 mmHg BP Diastolic 76 mmHg Body Temperature 97.8 F Height 69 inches 5'9" Weight 218.00 lb BMI (Body Mass Index) 32.2 kg/m2 10/12/2008 BP Systolic 120 mmHg BP Diastolic 90 mmHg Body Temperature 98.1 F Height 69 inches 5'9" Weight 216.00 lb BMI (Body Mass Index) 31.9 kg/m2 08/14/2008 BP Systolic 124 mmHg BP Diastolic 80 mmHg Body Temperature 97.9 F Height 69 inches 5'9" Weight 214.00 lb BMI (Body Mass Index) 31.6 kg/m2 02/28/2008 BP Systolic 112 mmHg BP Diastolic 70 mmHg Body Temperature 98.1 F Height 68 inches 5'8" Weight 199.00 lb BMI (Body Mass Index) 30.3 kg/m2 01/31/2008 BP Systolic 122 mmHg BP Diastolic 76 mmHg Body Temperature 98.0 F Height 68 inches 5'8" Weight 206.50 lb BMI (Body Mass Index) 31.4 kg/m2 09/09/2007 BP Systolic 104 mmHg BP Diastolic 74 mmHg Body Temperature 98.3 F Height 68 inches 5'8" Weight 205.00 lb BMI (Body Mass Index) 31.2 kg/m2 09/24/2006 BP Systolic 108 mmHg BP Diastolic 70 mmHg Height 68 inches 5'8" Weight 200.00 lb BMI (Body Mass Index) 30.4 kg/m2 Last Menstrual Period 0 Results Test Date Test Result H/L Range Note Laboratory test 02/01/2018 D Dimer Quantitative 763 ng/mL High Less Than 230 1, 2 finding CBS W/Automated 01/22/2018 White Blood Count 7.3 K/uL 3.4-10.5 3 Diff Red Blood Count 5.03 M/uL 4.20-5.80 3 Hemoglobin 14.7 gm/dL 12.8-17.0 3 Hematocrit 42.0 % 38.0-48.0 3 Mean Cell Volume 83.5 fl 80.0-96.0 3 Mean Corpuscular HGB 29.2 pg 27.0-33.0 3 Mean Corpuscular HGB Conc 35.0 g/dL 31.7-36.0 3 Platelet Count 235 K/uL 155-360 3 Red Cell Distri Width SD 39.3 fl 36-51 3 Red Cell Distri Width %CV 13.2 % 11.6-15.8 3 Mean Platelet Volume 11.1 fL High 6.6-10.6 3 Neut% 67.1 % 33.0-73.0 3 Lymph % 20.4 % 20.0-42.0 3 Baldwin % 9.6 % 0.0-10.0 3 Eo% 2.5 % 0.0-6.6 3 Bas% 0.4 % 0.0-1.1 3 Neut# 4.89 K/uL 1.8-7.0 3 Lymph # 1.49 K/uL 1.0-4.0 3 Baldwin # 0.70 K/uL 0.0-0.8 3 Eos # 0.18 K/uL 0.0-0.5 3 Baso # 0.03 K/uL 0.0-0.1 3 Comprehensive Metabolic Panel 01/22/2018 Glucose 92 mg/dL 74-106 3 BUN 9 mg/dL 7-18 3 Creatinine 0.8 mg/dL 0.6-1.3 3 Glom Filtration Rate, Estimate >60 mL/min >60 3 If >60 mL/min >60 3, 4 BUN/Creat 11.2 ratio 3 Sodium 139 mmol/L 136-145 3 Potassium 3.8 mmol/L 3.5-5.1 3 Chloride 108 mmol/L High 98-107 3 Carbon Dioxide 26 mmol/L 21-32 3 Anion Gap 5 mEq/L Low 8-16 3 Calcium 8.8 mg/dL 8.5-10.1 3 Total Protein 6.8 g/dL 6.4-8.2 3 Albumin 3.3 g/dL Low 3.4-5.0 3 Globulin 3.5 g/dL 1.9-4.3 3 Alb/Glob 0.9 ratio 3 Bilirubin,Total 0.5 mg/dL 0.2-1.0 3 Sgot/Ast 19 U/L 15-37 3 SGPT/Alt 30 U/L 12-78 3 Alkaline Phosphatase 65 U/L 45-117 3 Laboratory test finding 01/22/2018 Lipase 119 U/L 56-289 3 C-Reactive Protein,Quant 18.6 mg/L High <3.0 3 Ua RFX Micro & Culture II 01/22/2018 Urine Color YELLOW Yellow 3 Urine Clarity CLEAR Clear 3 Urine Glucose - Dipstick NEGATIVE mg/dL Negative 3 Urine Bilirubin - Dipstick NEGATIVE Negative 3 Urine Ketone TRACE mg/dL High Negative 3 Urine Specific [place] 1.015 1.010-1.030 3 Urine Blood NEGATIVE Negative 3 Urine PH 7.0 6.5-7.5 3 Urine Protein - Dipstick NEGATIVE mg/dL Negative 3 Urine Urobilinogen - Dipstick 0.2 E.U./dL 0.2-1.0 3 Urine Nitrite - Dipstick NEGATIVE Negative 3 Urine Leuk Esterase NEGATIVE Negative 3 Source: URINE, CLEAN CAT <SEE NOTE> 3, 5 CBS W/Automated Diff 01/21/2018 White Blood Count 7.4 K/uL 3.4-10.5 6 Red Blood Count 4.86 M/uL 4.20-5.80 6 Hemoglobin 14.0 gm/dL 12.8-17.0 6 Hematocrit 40.2 % 38.0-48.0 6 Mean Cell Volume 82.7 fl 80.0-96.0 6 Mean Corpuscular HGB 28.8 pg 27.0-33.0 6 Mean Corpuscular HGB Conc 34.8 g/dL 31.7-36.0 6 Platelet Count 211 K/uL 155-360 6 Red Cell Distri Width SD 38.8 fl 36-51 6 Red Cell Distri Width %CV 13.0 % 11.6-15.8 6 Mean Platelet Volume 10.8 fL High 6.6-10.6 6 Neut% 61.7 % 33.0-73.0 6 Lymph % 26.5 % 20.0-42.0 6 Baldwin % 8.5 % 0.0-10.0 6 Eo% 2.8 % 0.0-6.6 6 Bas% 0.5 % 0.0-1.1 6 Neut# 4.58 K/uL 1.8-7.0 6 Lymph # 1.97 K/uL 1.0-4.0 6 Baldwin # 0.63 K/uL 0.0-0.8 6 Eos # 0.21 K/uL 0.0-0.5 6 Baso # 0.04 K/uL 0.0-0.1 6 Comprehensive Metabolic Panel 01/21/2018 Glucose 84 mg/dL 74-106 6 BUN 6 mg/dL Low 7-18 6 Creatinine 0.9 mg/dL 0.6-1.3 6 Glom Filtration Rate, Estimate >60 mL/min >60 6 If >60 mL/min >60 6, 7 BUN/Creat 6.6 ratio 6 Sodium 140 mmol/L 136-145 6 Potassium 3.6 mmol/L 3.5-5.1 6 Chloride 105 mmol/L 98-107 6 Carbon Dioxide 26 mmol/L 21-32 6 Anion Gap 9 mEq/L 8-16 6 Calcium 8.4 mg/dL Low 8.5-10.1 6 Total Protein 6.1 g/dL Low 6.4-8.2 6 Albumin 3.1 g/dL Low 3.4-5.0 6 Globulin 3.0 g/dL 1.9-4.3 6 Alb/Glob 1.0 ratio 6 Bilirubin,Total 0.5 mg/dL 0.2-1.0 6 Sgot/Ast 18 U/L 15-37 6 SGPT/Alt 30 U/L 12-78 6 Alkaline Phosphatase 50 U/L 45-117 6 Drugs Of Abuse-Urine Screen 7 01/20/2018 Amphetamines (Urine) Negative 6 Barbiturates (Urine) Negative 6 Benzodiazepines (Urine) Negative 6 Cannabinoids (Urine) Negative 6 Cocaine Metabolite (Urine) Negative 6 Methadone (Urine) Negative 6 Opiates (Urine) Negative 6 Urine Cutoffs * 6, 8 Laboratory test finding 01/20/2018 CK 620 U/L High 39-308 6 Vitamin B12 1105 pg/mL High 193-986 6 Thyroxine (T4) 11.8 g/dL 4.7-13.3 6 Thyroid Stim Hormone 0.77 uIU/mL 0.30-4.20 6 Laboratory test finding 01/20/2018 Magnesium 2.2 mg/dL 1.8-2.4 6 Comprehensive Metabolic Panel 01/20/2018 Glucose 133 mg/dL High 74-106 6 BUN 8 mg/dL 7-18 6 Creatinine 0.9 mg/dL 0.6-1.3 6 Glom Filtration Rate, Estimate >60 mL/min >60 6 If >60 mL/min >60 6, 9 BUN/Creat 8.8 ratio 6 Sodium 138 mmol/L 136-145 6 Potassium 3.4 mmol/L Low 3.5-5.1 6 Chloride 104 mmol/L 98-107 6 Carbon Dioxide 26 mmol/L 21-32 6 Anion Gap 8 mEq/L 8-16 6 Calcium 8.6 mg/dL 8.5-10.1 6 Total Protein 6.4 g/dL 6.4-8.2 6 Albumin 3.3 g/dL Low 3.4-5.0 6 Globulin 3.1 g/dL 1.9-4.3 6 Alb/Glob 1.1 ratio 6 Bilirubin,Total 0.5 mg/dL 0.2-1.0 6 Sgot/Ast 25 U/L 15-37 6 SGPT/Alt 34 U/L 12-78 6 Alkaline Phosphatase 61 U/L 45-117 6 CBS W/Automated Diff 01/20/2018 White Blood Count 8.1 K/uL 3.4-10.5 6 Red Blood Count 5.02 M/uL 4.20-5.80 6 Hemoglobin 14.5 gm/dL 12.8-17.0 6 Hematocrit 40.6 % 38.0-48.0 6 Mean Cell Volume 80.9 fl 80.0-96.0 6 Mean Corpuscular HGB 28.9 pg 27.0-33.0 6 Mean Corpuscular HGB Conc 35.7 g/dL 31.7-36.0 6 Platelet Count 238 K/uL 155-360 6 Red Cell Distri Width SD 36.8 fl 36-51 6 Red Cell Distri Width %CV 12.9 % 11.6-15.8 6 Mean Platelet Volume 10.6 fL 6.6-10.6 6 Neut% 80.9 % High 33.0-73.0 6 Lymph % 13.5 % Low 20.0-42.0 6 Baldwin % 4.8 % 0.0-10.0 6 Eo% 0.7 % 0.0-6.6 6 Bas% 0.1 % 0.0-1.1 6 Neut# 6.50 K/uL 1.8-7.0 6 Lymph # 1.09 K/uL 1.0-4.0 6 Baldwin # 0.39 K/uL 0.0-0.8 6 Eos # 0.06 K/uL 0.0-0.5 6 Baso # 0.01 K/uL 0.0-0.1 6 Ua RFX Micro & Culture II 01/19/2018 Urine Color YELLOW Yellow 10 Urine Clarity CLEAR Clear 10 Urine Glucose - Dipstick NEGATIVE mg/dL Negative 10 Urine Bilirubin - Dipstick NEGATIVE Negative 10 Urine Ketone 40 mg/dL High Negative 10 Urine Specific [place] 1.015 1.010-1.030 10 Urine Blood TRACE Negative 10 Urine PH 6.0 Low 6.5-7.5 10 Urine Protein - Dipstick NEGATIVE mg/dL Negative 10 Urine Urobilinogen - Dipstick 0.2 E.U./dL 0.2-1.0 10 Urine Nitrite - Dipstick NEGATIVE Negative 10 Urine Leuk Esterase NEGATIVE Negative 10 Source: URINE, CLEAN CAT <SEE 10, 11 NOTE> Laboratory test finding 01/19/2018 Magnesium 2.3 mg/dL 1.8-2.4 10 Laboratory test finding 2017 Lactic Acid 0.8 mmol/L 0.5-2.0 12 CBC Auto Diff 2017 White Blood Count 6.8 10^3/uL 3.5-10.8 Red Blood Count 5.15 10^6/uL 4.0-5.4 Hemoglobin 14.7 g/dL 14.0-18.0 Hematocrit 43 % 42-52 Mean Corpuscular Volume 84 fL 80-94 Mean Corpuscular Hemoglobin 29 pg 27-31 Mean Corpuscular HGB Conc 34 g/dL 31-36 Red Cell Distribution Width 14 % 10.5-15 Platelet Count 224 10^3/uL 150-450 Mean Platelet Volume 8 um3 7.4-10.4 Abs Neutrophils 5.0 10^3/uL 1.5-7.7 Abs Lymphocytes 1.3 10^3/uL 1.0-4.8 Abs Monocytes 0.4 10^3/uL 0-0.8 Abs Eosinophils 0 10^3/uL 0-0.6 Abs Basophils 0 10^3/uL 0-0.2 Abs Nucleated RBC 0 10^3/uL Granulocyte % 73.3 % 38-83 Lymphocyte % 19.5 % Low 25-47 Monocyte % 6.1 % 1-9 Eosinophil % 0.5 % 0-6 Basophil % 0.6 % 0-2 Nucleated Red Blood Cells % 0 Laboratory test finding 2017 Lipase 16 U/L 11.0-82.0 C Reactive Protein 2.11 mg/L < 5.00 13 Comp Metabolic Panel 2017 Sodium 134 mmol/L 133-145 Potassium 3.8 mmol/L 3.5-5.0 Chloride 102 mmol/L 101-111 Co2 Carbon Dioxide 27 mmol/L 22-32 Anion Gap 5 mmol/L 2-11 Glucose 93 mg/dL 70-100 Blood Urea Nitrogen 6 mg/dL 6-24 Creatinine 1.02 mg/dL 0.67-1.17 BUN/Creatinine Ratio 5.9 Low 8-20 Calcium 9.1 mg/dL 8.6-10.3 Total Protein 6.6 g/dL 6.4-8.9 Albumin 4.1 g/dL 3.2-5.2 Globulin 2.5 g/dL 2-4 Albumin/Globulin Ratio 1.6 1-3 Total Bilirubin 0.40 mg/dL 0.2-1.0 Alkaline Phosphatase 73 U/L 34-104 Alt 63 U/L High 7-52 Ast 50 U/L High 13-39 Egfr Non- 75.3 >60 Egfr 96.8 >60 14 Laboratory test finding 2017 Urine Culture And SEE RESULT BELOW 15 Sensitivities Urinalysis Profile 2017 Urine Color Yellow Urine Appearance Clear Urine Specific [place] 1.005 Low 1.010-1.030 Urine pH 6.0 5-9 Urine Urobilinogen Negative Negative Urine Ketones Negative Negative Urine Protein Negative Negative Urine Leukocytes Trace Negative Urine Blood Negative Negative Urine Nitrite Negative Negative Urine Bilirubin Negative Negative Urine Glucose Negative Negative Urine White Blood Cell Absent Absent Urine Red Blood Cell Trace(0-2/hpf) Absent Urine Bacteria Absent Absent Poc Urinalysis 12/16/2017 Poc Glucose, Urine Negative Negative Poc Bilirubin, Urine Negative Negative Poc Ketone, Urine Negative Negative Poc Specific [place], Urine 1.020 1.010-1.030 Poc Blood, Urine Trace-intact Negative Poc pH, Urine 5.5 5-9 Poc Protein, Urine Negative Negative Poc Urobilinogen, Urine 0.2 Negative Poc Nitrite, Urine Negative Negative Poc Leukocytes, Urine Negative Negative Poc Color, Urine Yellow Poc Clarity, Urine Clear 16 Laboratory test finding 12/31/2016 Alt 19 U/L 7-52 17 Lipid Profile (Trig/Chol/HDL) 12/31/2016 Triglycerides 104 mg/dL 18 Cholesterol 145 mg/dL 19 HDL Cholesterol 39.3 mg/dL 20 LDL Cholesterol 85 mg/dL 21 Comp Metabolic Panel 09/13/2015 Sodium 135 mmol/L 133-145 Potassium 4.2 mmol/L 3.5-5.0 Chloride 101 mmol/L 101-111 Co2 Carbon Dioxide 26 mmol/L 22-32 Anion Gap 8 mmol/L 2-11 Glucose 86 mg/dL 70-100 Blood Urea Nitrogen 14 mg/dL 6-24 Creatinine 1.01 mg/dL 0.67-1.17 BUN/Creatinine Ratio 13.9 8-20 Calcium 8.9 mg/dL 8.6-10.3 Total Protein 6.6 g/dL 6.4-8.9 Albumin 4.4 g/dL 3.2-5.2 Globulin 2.2 g/dL 2-4 Albumin/Globulin Ratio 2.0 1-3 Total Bilirubin 0.50 mg/dL 0.2-1.0 Alkaline Phosphatase 81 U/L 34-104 Alt 20 U/L 7-52 Ast 19 U/L 13-39 Egfr Non- 77.0 >60 Egfr 99.0 >60 22 Laboratory test finding 09/13/2015 Magnesium 2.2 mg/dL 1.9-2.7 C Reactive Protein 4.37 mg/L < 5.00 23 Ferritin 75.2 ng/mL 24-336 Vitamin B12 549 pg/mL 180-914 24 CBC Auto Diff 09/13/2015 White Blood Count 8.0 10^3/uL 4.8-10.8 Red Blood Count 5.12 10^6/uL 4.0-5.4 Hemoglobin 14.9 g/dL 14.0-18.0 Hematocrit 45 % 42-52 Mean Corpuscular Volume 89 fL 80-94 Mean Corpuscular Hemoglobin 29 pg 27-31 Mean Corpuscular HGB Conc 33 g/dL 31-36 Red Cell Distribution Width 13 % 10.5-15 Platelet Count 223 10^3/uL 150-450 Mean Platelet Volume 9 um3 7.4-10.4 Abs Neutrophils 6.0 10^3/uL 1.5-7.7 Abs Lymphocytes 1.4 10^3/uL 1.0-4.8 Abs Monocytes 0.5 10^3/uL 0-0.8 Abs Eosinophils 0.1 10^3/uL 0-0.6 Abs Basophils 0 10^3/uL 0-0.2 Abs Nucleated RBC 0.02 10^3/uL Granulocyte % 75.2 % 38-83 Lymphocyte % 17.4 % Low 25-47 Monocyte % 6.1 % 1-9 Eosinophil % 0.8 % 0-6 Basophil % 0.5 % 0-2 Nucleated Red Blood Cells % 0.2 Laboratory test finding 09/13/2015 Erythrocyte Sed Rate 9 mm/Hr 0-20 Protein Electrophoresis 09/13/2015 Total Protein(Pep) 6.9 g/dL 6.3 - 7.9 Albumin 3.6 g/dL 3.4-4.7 Alpha-1 Globulin 0.3 g/dL 0.1-0.3 Alpha-2 Globulin 1.1 g/dL 0.6-1.0 Beta Globulin 0.9 g/dL 0.7-1.2 Gamma Globulin 1.0 g/dL 0.6-1.6 Albumin/Globulin Ratio 1.06 Impression See Comment 25 Laboratory test finding 08/01/2015 TSH (Thyroid Stim Horm) 1.92 ?IU/mL 0.34-5.60 26 Folic Acid (Folate) 15.11 ng/mL >3.99 27 Erythrocyte Sed Rate 6 mm/Hr 0-20 28 C Reactive Protein 5.78 mg/L High < 5.00 29 Sharon (Antinuclear Antibodies) Negative Negative 30 Vitamin B12 253 pg/mL 180-914 31 Glucose 90 mg/dL 70-100 32 Lipid Profile (Trig/Chol/HDL) 08/01/2015 Triglycerides 107 mg/dL 33 Cholesterol 202 mg/dL 34 HDL Cholesterol 44.8 mg/dL 35 LDL Cholesterol 136 mg/dL 36 Inr/Protime 12/10/2014 Inr 2.38 High 0.85-1.06 Inr/Protime 12/03/2014 Inr 1.98 High 0.85-1.06 Inr/Protime 11/26/2014 Inr 1.65 High 0.85-1.06 Inr/Protime 11/19/2014 Inr 4.01 High 0.85-1.06 Inr/Protime 11/05/2014 Inr 2.01 High 0.85-1.06 Laboratory test 10/31/2014 Hepatitis C Nonreactive Nonreactive 37, 38 finding Antibody Lipid Profile 10/31/2014 Triglycerides 137 mg/dL 37, 39 (Trig/Chol/HDL) Cholesterol 222 mg/dL 37, 40 HDL Cholesterol 36.1 mg/dL 37, 41 LDL Cholesterol 159 mg/dL 37, 42 Laboratory test 10/31/2014 TSH (Thyroid 1.99 IU/mL 0.34-5.60 37, 43 finding Stimulating Horm) Alt 19 U/L 7-52 37, 44 Inr/Protime 10/29/2014 Inr 1.98 High 0.85-1.06 Laboratory test finding 10/22/2014 Troponin I 0.00 ng/mL <0.03 45 CBC Auto Diff 10/22/2014 White Blood Count 7.8 10^3/uL 4.8-10.8 Red Blood Count 5.30 10^6/uL 4.0-5.4 Hemoglobin 14.8 g/dL 14.0-18.0 Hematocrit 44 % 42-52 Mean Corpuscular Volume 83 fL 80-94 Mean Corpuscular Hemoglobin 28 pg 27-31 Mean Corpuscular HGB Conc 34 g/dL 31-36 Red Cell Distribution Width 13 % 10.5-15 Platelet Count 218 10^3/uL 150-450 Mean Platelet Volume 8 um3 7.4-10.4 Abs Neutrophils 6.0 10^3/uL 1.5-7.7 Abs Lymphocytes 1.2 10^3/uL 1.0-4.8 Abs Monocytes 0.5 10^3/uL 0-0.8 Abs Eosinophils 0.1 10^3/uL 0-0.6 Abs Basophils 0.1 10^3/uL 0-0.2 Abs Nucleated RBC 0 10^3/uL Granulocyte % 76.6 % 38-83 Lymphocyte % 15.7 % Low 25-47 Monocyte % 6.4 % 1-9 Eosinophil % 0.7 % 0-6 Basophil % 0.6 % 0-2 Nucleated Red Blood Cells % 0 Comp Metabolic Panel 10/22/2014 Sodium 136 mmol/L 133-145 Potassium 3.8 mmol/L 3.5-5.0 46 Chloride 105 mmol/L 101-111 Co2 Carbon Dioxide 24 mmol/L 22-32 Anion Gap 7 mmol/L 2-11 Glucose 109 mg/dL High 70-100 Blood Urea Nitrogen 16 mg/dL 6-24 Creatinine 1.08 mg/dL 0.67-1.17 BUN/Creatinine Ratio 14.8 8-20 Calcium 9.1 mg/dL 8.6-10.3 Total Protein 6.7 g/dL 6.4-8.9 Albumin 4.1 g/dL 3.2-5.2 Globulin 2.6 g/dL 2-4 Albumin/Globulin Ratio 1.6 1-3 Total Bilirubin 0.50 mg/dL 0.2-1.0 Alkaline Phosphatase 73 U/L 34-104 Alt 18 U/L 7-52 Ast 14 U/L 13-39 Egfr Non- 71.5 >60 Egfr 92.0 >60 47 Laboratory test finding 10/22/2014 Lipase 9 U/L Low 11.0-82.0 Troponin I 0.00 ng/mL <0.03 48 Inr/Protime 10/22/2014 Inr 1.91 High 0.85-1.06 Laboratory test finding 10/22/2014 Activated Partial 36.9 seconds High 24.0-36.1 Thrombo Time Creatine Kinase 77 U/L 10-223 CKMB 10/22/2014 CKMB ng/mL 1.1 ng/mL 0.6-6.3 Inr/Protime 10/15/2014 Inr 2.43 High 0.85-1.06 Inr/Protime 10/08/2014 Inr 3.48 High 0.85-1.06 Inr/Protime 09/24/2014 Inr 2.59 High 0.85-1.06 Inr/Protime 09/19/2014 Inr 2.85 High 0.85-1.06 Inr/Protime 09/17/2014 Inr 3.23 High 0.85-1.06 Inr/Protime 09/15/2014 Inr 3.26 High 0.85-1.06 49 Inr/Protime 09/14/2014 Inr 2.59 High 0.85-1.06 Inr/Protime 09/12/2014 Inr 1.86 High 0.85-1.06 Inr/Protime 09/06/2014 Inr 1.32 High 0.85-1.06 Basic Metabolic Panel 09/05/2014 Sodium 137 mmol/L 133-145 50 Potassium 3.8 mmol/L 3.7-5.6 50 Chloride 103 mmol/L 101-111 50 Co2 Carbon Dioxide 27 mmol/L 22-32 50 Anion Gap 7 mmol/L 2-11 50 Glucose 91 mg/dL 70-100 50 Blood Urea Nitrogen 19 mg/dL 6-24 50 Creatinine 1.13 mg/dL 0.67-1.17 50 BUN/Creatinine Ratio 16.8 8-20 50 Calcium 8.7 mg/dL 8.6-10.3 50 Egfr Non- 67.9 >60 50 Egfr 87.3 >60 50, 51 Inr/Protime 09/05/2014 Inr 0.94 0.85-1.06 50 CBC Auto Diff 09/05/2014 White Blood Count 9.3 10^3/uL 4.8-10.8 50 Red Blood Count 5.05 10^6/uL 4.0-5.4 50 Hemoglobin 14.4 g/dL 14.0-18.0 50 Hematocrit 42 % 42-52 50 Mean Corpuscular Volume 84 fL 80-94 50 Mean Corpuscular Hemoglobin 29 pg 27-31 50 Mean Corpuscular HGB Conc 34 g/dL 31-36 50 Red Cell Distribution Width 13 % 10.5-15 50 Platelet Count 245 10^3/uL 150-450 50 Mean Platelet Volume 8 um3 7.4-10.4 50 Abs Neutrophils 6.3 10^3/uL 1.5-7.7 50 Abs Lymphocytes 2.2 10^3/uL 1.0-4.8 50 Abs Monocytes 0.6 10^3/uL 0-0.8 50 Abs Eosinophils 0.1 10^3/uL 0-0.6 50 Abs Basophils 0.1 10^3/uL 0-0.2 50 Abs Nucleated RBC 0 10^3/uL 50 Granulocyte % 67.5 % 38-83 50 Lymphocyte % 23.8 % Low 25-47 50 Monocyte % 6.3 % 1-9 50 Eosinophil % 1.5 % 0-6 50 Basophil % 0.9 % 0-2 50 Nucleated Red Blood Cells % 0 50 Laboratory test finding 01/23/2014 PSA Diagnostic 1.267 ng/mL 0-4.0 52 Lipid Profile (Trig/Chol/HDL) 07/20/2012 Triglyceride 128 mg/dL 40-200 Cholesterol 236 mg/dL High Less Than 200 53 High Density Lipoprotein 43 mg/dL 40-60 54 Cholesterol/HDL Ratio 5.49 AVERAGE High 1-4.97 Low Density Lipoprotein 167 mg/dL High Less Than 100 55 Laboratory test finding 07/20/2012 Alt (SGPT) 23 U/L 17-63 Clotest 04/25/2012 M 56 <SEE NOTE> Surgical Pathology 04/25/2012 Surgical Pathology 57 <SEE NOTE> Lipid Profile 12/17/2011 Triglyceride 94 mg/dL 40-200 (Trig/Chol/HDL) Cholesterol 241 mg/dL High Less Than 200 58 High Density Lipoprotein 39 mg/dL Low 40-60 59 Cholesterol/HDL Ratio 6.18 AVERAGE High 1-4.97 Low Density Lipoprotein 183 mg/dL High Less Than 100 60 Laboratory test finding 12/17/2011 PSA,Diagnostic 1.01 NG/ML 0-4 61 Xray 01/10/2010 X-Ray, Chest, 2 Views wo acute chge Comp Metabolic Panel 10/02/2009 Sodium 139 mmol/L 135-145 62 Potassium 4.0 mmol/L 3.5-5.0 62 Chloride 106 mmol/L 101-111 62 Co2 (Carbon Dioxide) 28.0 mmol/L 22-32 62 Anion Gap 5.0 mmol/L 2-11 62, 63 Glucose 89 mg/dL 70-100 62, 64 BUN 15 mg/dL 6-24 62 Creatinine 1.00 mg/dL 0.50-1.40 62 One Over Creatinine 1.00 62 BUN/Creatinine Ratio 15.0 8-20 62 Calcium 8.9 mg/dL 8.1-9.9 62, 65 Total Protein 6.0 GM/DL Low 6.2-8.1 62 Albumin 3.8 GM/DL 3.6-5.4 62 Globulin 2.2 GM/DL 2-4 62 Albumin/Globulin Ratio 1.7 1-3 62 Bilirubin Total 0.6 mg/dL 0.4-1.5 62, 66 Alkaline Phosphatase 65 U/L 39-117 62 Alt (SGPT) 27 U/L 17-63 62 Ast (Sgot) 20 U/L 12-42 62 eGFR Non- 84.8 > 60 62 eGFR 102.6 > 60 62, 67 Lipid Profile (Trig/Chol/HDL) 10/02/2009 Triglyceride 122 mg/dL 40-200 62 Cholesterol 234 mg/dL High Less Than 200 62, 68 High Density Lipoprotein 31 mg/dL Low 40-60 62, 69 Cholesterol/HDL Ratio 7.55 AVERAGE High 1-4.97 62 Low Density Lipoprotein 179 mg/dL High Less Than 100 62, 70 CBC With Electronic Diff 10/02/2009 White Blood Count 7.8 CUMM 4.8-10.8 62 Red Cell Count 5.18 CUMM 4.6-6.2 62 Hemoglobin 14.7 g/dL 14.0-18.0 62 Hematocrit 44 % 42-52 62 Mean Corpuscular Volume 84 um3 80-94 62 Mean Corpuscular Hemoglob 28 pg 27-31 62 Mean Corpuscular HGB Cone 34 g/dL 32-36 62 Redcell Distribution WDTH 13 % 10.5-15 62 Platelet Count 305 CUMM 150-450 62 Mean Platelet Volume 7.8 um3 7.4-10.4 62 Gran % 70.5 % 38-83 62 Lymph % 22.4 % Low 25-47 62 Mononuclear % 5.0 % 1-9 62 Eosinophil % 1.5 % 0-6 62 Basophil % 0.6 % 0-2 62 Abs Lymphs 1.8 1.0-4.8 62 Abs Mononuclear 0.4 0-0.8 62 Absolute Neutrophil Count 5.5 1.5-7.7 62 Abs Eosinophils 0.1 0-0.6 62 Abs Basophils 0 0-0.2 62 Laboratory test finding 10/02/2009 TSH 1.72 MIU/ML 0.34-5.60 62 C Reactive Protein < 0.5 mg/dL Less Than 0.5 62 Urine Micro Inhouse 10/01/2009 Urine Microscopic Inhouse - Ua Inhouse 10/01/2009 Ua Glucose - Ua Bilirubin - Ua Ketones - Ua Specific [place] 1.005 Ua Blood - Ua PH 5.0 Ua Protein - Ua Urobilinogen - Ua Nitrite - Ua Leukocytes - CBC With Manual Diff 2008 White Blood Count 7.9 CUMM 4.8-10.8 Red Cell Count 5.24 CUMM 4.6-6.2 Hemoglobin 15.3 g/dL 14.0-18.0 Hematocrit 44 % 42-52 Mean Corpuscular Volume 84 um3 80-94 Mean Corpuscular Hemoglob 29 pg 27-31 Mean Corpuscular HGB Cone 35 g/dL 32-36 Redcell Distribution WDTH 13 % 10.5-15 Platelet Count (SEE NOTE) CUMM 150-450 71 Polysegmented Neutrophil 74 % 38-83 Band Neutrophil 1 % 0-8 Lymphocyte 20 % Low 25-47 Monocyte 4 % 0-13 Eosenophil 1 % 0-6 Absolute Neutrophil Count 5.9 RBC Morphology NORMAL Lipid Profile (Trig/Chol/HDL) 2008 Triglyceride 126 mg/dL 40-200 Cholesterol 227 mg/dL High Less Than 200 72 High Density Lipoprotein 38 mg/dL Low 40-60 73 Cholesterol/HDL Ratio 5.97 AVERAGE High 1-4.97 Low Density Lipoprotein 164 mg/dL High Less Than 100 74 Comp Metabolic Panel 2008 Sodium 135 mmol/L 135-145 Potassium 4.2 mmol/L 3.5-5.0 Chloride 104 mmol/L 101-111 Co2 (Carbon Dioxide) 25.0 mmol/L 22-32 Anion Gap 6.0 mmol/L 2-11 75 Glucose 83 mg/dL 70-100 76 BUN 15 mg/dL 6-24 Creatinine 1.10 mg/dL 0.50-1.40 One Over Creatinine 0.90 BUN/Creatinine Ratio 13.6 8-20 Calcium 9.0 mg/dL 8.1-9.9 77 Total Protein 6.0 GM/DL Low 6.2-8.1 Albumin 3.8 GM/DL 3.6-5.4 Globulin 2.2 GM/DL 2-4 Albumin/Globulin Ratio 1.7 1-3 Bilirubin Total 0.8 mg/dL 0.4-1.5 Alkaline Phosphatase 64 U/L 39-117 Alt (SGPT) 24 U/L 17-63 Ast (Sgot) 19 U/L 12-42 Laboratory test finding 2008 PSA Screening 0.68 NG/ML 0-4 Ua Inhouse 11/27/2008 Ua Glucose - Ua Bilirubin - Ua Ketones - Ua Specific [place] 1.005 Ua Blood - Ua PH 5.0 Ua Protein - Ua Urobilinogen - Ua Nitrite - Ua Leukocytes - Culture Urine Inhouse 11/27/2008 Colonies no growth Laboratory test finding 09/10/2007 TSH 2.07 MIU/ML 0.34-5.60 Basic Metabolic Panel 09/10/2007 One Over Creatinine 0.90 Anion Gap 7.0 mmol/L 2-11 78 BUN 19 mg/dL 6-24 Calcium 8.3 mg/dL Low 8.7-10.2 Chloride 106 mmol/L 101-111 Co2 (Carbon Dioxide) 27.0 mmol/L 22-32 Glucose 91 mg/dL 70-105 Potassium 3.9 mmol/L 3.5-5.0 Sodium 140 mmol/L 135-145 BUN/Creatinine Ratio 17.3 8-20 Creatinine 1.1 mg/dL 0.5-1.4 CBC With Electronic Diff 09/10/2007 White Blood Count 9.4 CUMM 4.8-10.8 Abs Basophils 0.1 0-0.2 Abs Eosinophils 0.2 0-0.6 Absolute Neutrophil Count 6.3 1.5-7.7 Abs Lymphs 2.3 1.0-4.8 Abs Mononuclear 0.5 0-0.8 Basophil % 0.6 % 0-2 Hematocrit 43 % 42-52 Hemoglobin 14.9 g/dL 14.0-18.0 Eosinophil % 2.1 % 0-6 Gran % 67.1 % 38-83 Lymph % 24.6 % 20-45 Mean Corpuscular HGB Cone 35 g/dL 32-36 Mean Corpuscular Hemoglob 29 pg 27-31 Mean Corpuscular Volume 85 um3 80-94 Mean Platelet Volume 8.8 um3 7.4-10.4 Mononuclear % 5.6 % 1-9 Platelet Count 267 CUMM 150-450 Red Cell Count 5.11 CUMM 4.6-6.2 Redcell Distribution WDTH 13 % 10.5-[address] FINCH [phone] WITH RESULTS 2 Please note: The following may produce a false positive D Dimer test: - Rheumatoid factor greater than 60 IU/ml - Plasma hemoglobin greater than 0.05 gm/dl - Bilirubin greater than 50 mg/dl - Lipids greater than 1000 mg/dl - FDP greater than 20 ug/ml 3 ABDOMINAL PAIN 4 Note: Persistent reduction for 3 months or more in an eGFR <60 mL/min/1.73 m2 defines CKD. Patients with eGFR values >/=60 mL/min/1.73 m2 may also have CKD if evidence of persistent proteinuria is present. The original MDRD equation for estimated GFR is not valid for patients less than 18 years of age. Additional information may be found at www.kdoqi.org. 5 URINE, CLEAN CATCH 6 SYNCOPE 7 Note: Persistent reduction for 3 months or more in an eGFR <60 mL/min/1.73 m2 defines CKD. Patients with eGFR values >/=60 mL/min/1.73 m2 may also have CKD if evidence of persistent proteinuria is present. The original MDRD equation for estimated GFR is not valid for patients less than 18 years of age. Additional information may be found at www.kdoqi.org. 8 URINE SPECIMENS ARE SCREENED AT THE LISTED CUTOFFS DRUG CLASS INITIAL TEST LEVEL Amphetamines 1000 ng/mL Barbiturates 200 ng/mL Benzodiazepines 200 ng/mL Cannabinoids 50 ng/mL Cocaine Metabolite 300 ng/mL Methadone 300 ng/mL Opiates 300 ng/mL Any PRESUMPTIVE POSITIVE findings are UNCONFIRMED. Confirmatory testing is suggested if findings are unexpected. Please contact laboratory if confirmatory testing is desired. SPECIMENS ARE HELD FOR 72 HOURS. 9 Note: Persistent reduction for 3 months or more in an eGFR <60 mL/min/1.73 m2 defines CKD. Patients with eGFR values >/=60 mL/min/1.73 m2 may also have CKD if evidence of persistent proteinuria is present. The original MDRD equation for estimated GFR is not valid for patients less than 18 years of age. Additional information may be found at www.kdoqi.org. 10 FALL TODAY, PASSED OUT? L SIDE FACIAL PAIN L EAR 11 URINE, CLEAN CATCH 12 NES Severe Sepsis and Septic Shock Management Bundle Measure requires all lactic acids initially measuring >2.0 mmol/L be repeated. 13 Acute inflammation: >10.00 14 Because ethnic data is not always readily available, this report includes an eGFR for both -Americans and non- Americans. The National Kidney Disease Education Program (NKDEP) does not endorse the use of the MDRD equation for patients that are not between the ages of 18 and 70, are , have extremes of body size, muscle mass, or nutritional status, or are non- or non-. According to the National Kidney Foundation, irrespective of diagnosis, the stage of the disease is based on the level of kidney function: Stage Description GFR(mL/min/1.73 m(2)) 1 Kidney damage with normal or decreased GFR 90 2 Kidney damage with mild decrease in GFR 60-89 3 Moderate decrease in GFR 30-59 4 Severe decrease in GFR 15-29 5 Kidney failure <15 (or dialysis) 15 SEE RESULT BELOW Name: WING MURCIA : [address]: Alec Tafoya MD Acct: [id number] Unit: [id number] AGE: 57 Location: ED Re12/21/17 SEX: M Status: DEP ER SPEC: [id number] ANTONINO: 12/21/17-[address] [facility] [address]: Nidia MARTINEZ REQ: [id number] RECD: 12/21/17 STATUS: TERENCE DAWSON DR: Anton Tafoya MD _ SOURCE: URINE SPDESC: ORDERED: Urine Culture Procedure Result Reported Site Urine Culture Final 12/22/17- 1220 ML No Growth (<1,000 CFU/mL) * ML - MAIN LAB ([facility]) . END OF REPORT * ML=Testing performed at Main Lab DEPARTMENT OF PATHOLOGY, [address] [place] [address] Parminder Wheeler M.D. Director [facility] # [id number] Concrete Panel Installer: [id number] FASTING 12 HOUR 18 Desirable <150 Borderline high 150-199 High 200-499 Very High >500 19 Desirable <200 Borderline high 200-239 High >239 20 Low <40 Desirable: 40-60 High: >60 21 Desirable: <100 mg/dL Near Optimal: 100-129 mg/dL Borderline High: 130-159 mg/dL High: 160-189 mg/dL Very High: >189 mg/dL 22 Because ethnic data is not always readily available, this report includes an eGFR for both -Americans and non- Americans. The National Kidney Disease Education Program (NKDEP) does not endorse the use of the MDRD equation for patients that are not between the ages of 18 and 70, are , have extremes of body size, muscle mass, or nutritional status, or are non- or non-. According to the National Kidney Foundation, irrespective of diagnosis, the stage of the disease is based on the level of kidney function: Stage Description GFR(mL/min/1.73 m(2)) 1 Kidney damage with normal or decreased GFR 90 2 Kidney damage with mild decrease in GFR 60-89 3 Moderate decrease in GFR 30-59 4 Severe decrease in GFR 15-29 5 Kidney failure <15 (or dialysis) 23 Acute inflammation: >10.00 24 Normal Range 180 to 914 Indeterminate Range 145 to 180 Deficient Range <145 25 RESULT: No apparent monoclonal protein on serum electrophoresis. Test Performed by: [facility] [place] [address] Clinical Operations Specialist: Ramírez Quigley II, M.D., Ph.D. 26 FASTING 12 HOUR 27 FASTING 12 HOUR 28 FASTING 12 HOUR 29 Acute inflammation: >10.00 30 FASTING 12 HOUR 31 Normal Range 180 to 914 Indeterminate Range 145 to 180 Deficient Range <145 32 FASTING 12 HOUR 33 Desirable <150 Borderline high 150-199 High 200-499 Very High >500 34 Desirable <200 Borderline high 200-239 High >239 35 Low <40 Desirable: 40-60 High: >60 36 Desirable: <100 mg/dL Near Optimal: 100-129 mg/dL Borderline High: 130-159 mg/dL High: 160-189 mg/dL Very High: >189 mg/dL 37 FASTING 12 HOUR 38 FASTING 12 HOUR 39 Desirable <150 Borderline high 150-199 High 200-499 Very High >500 40 Desirable <200 Borderline high 200-239 High >239 41 Low <40 Desirable: 40-60 High: >60 42 Desirable <100 Near Optimal 100-129 Borderline high 130-159 High 160-189 Very High >189 43 FASTING 12 HOUR 44 FASTING 12 HOUR 45 Reference Range and Interpretation: TnI (ng/mL) Interpretation Less Than 0.03 ng/mL Not supportive of diagnosis of OR 0.03 - 0.50 ng/mL Indeterminate: suggest serial studies if clinically indicated. Greater than 0.5 ng/mL Consistent with diagnosis of OR 46 Potassium reference range changed effective 09/23/14 47 Because ethnic data is not always readily available, this report includes an eGFR for both -Americans and non- Americans. The National Kidney Disease Education Program (NKDEP) does not endorse the use of the MDRD equation for patients that are not between the ages of 18 and 70, are , have extremes of body size, muscle mass, or nutritional status, or are non- or non-. According to the National Kidney Foundation, irrespective of diagnosis, the stage of the disease is based on the level of kidney function: Stage Description GFR(mL/min/1.73 m(2)) 1 Kidney damage with normal or decreased GFR 90 2 Kidney damage with mild decrease in GFR 60-89 3 Moderate decrease in GFR 30-59 4 Severe decrease in GFR 15-29 5 Kidney failure <15 (or dialysis) 48 --- 10/22/14 1221 --- Troponin I previously reported as: 0.11 H ng/mL Corrected result! Wrong result was 0.11 . Reference Range and Interpretation: TnI (ng/mL) Interpretation Less Than 0.03 ng/mL Not supportive of diagnosis of OR 0.03 - 0.50 ng/mL Indeterminate: suggest serial studies if clinically indicated. Greater than 0.5 ng/mL Consistent with diagnosis of OR [address] FINCH @: CELL # [phone] SEE INR FLOWSHEET 51 Because ethnic data is not always readily available, this report includes an eGFR for both -Americans and non- Americans. The National Kidney Disease Education Program (NKDEP) does not endorse the use of the MDRD equation for patients that are not between the ages of 18 and 70, are , have extremes of body size, muscle mass, or nutritional status, or are non- or non-. According to the National Kidney Foundation, irrespective of diagnosis, the stage of the disease is based on the level of kidney function: Stage Description GFR(mL/min/1.73 m(2)) 1 Kidney damage with normal or decreased GFR 90 2 Kidney damage with mild decrease in GFR 60-89 3 Moderate decrease in GFR 30-59 4 Severe decrease in GFR 15-29 5 Kidney failure <15 (or dialysis) 52 Serum levels of PSA measured using the [employer] DXI Hybritech immunoassay should not be interpreted as absolute evidence of the presence or absence of disease. The PSA value should be used in conjunction with other pertinent clinical diagnostic procedures. The values obtained with different assay methods or kits cannot be used interchangeably. 53 CHOLESTEROL INTERPRETATION: Desirable: Less than 200 MG/DL Borderline-High Risk: 200-239 MG/DL High-Risk: 240 MG/DL and over 54 HDL INTERPRETATION: Undesirable: High Risk: Less than 40 MG/DL Desirable: Low Risk: Greater than 60 MG/DL 55 LDL INTERPRETATION: Low Risk Optimal Level: LDL Less than 100 MG/DL Near or Above Optimal: LDL 100-129 MG/DL Borderline High Risk: LDL 130-159 MG/DL High Risk: LDL 160-189 MG/DL Very High Risk: LDL Greater than 189 MG/DL 56 RUN DATE: 04/26/12 [facility] NMI LIVE PAGE 1 RUN TIME: 0800 Specimen Inquiry RUN USER: INTERFACE Name: WING MURCIA Status: REG REF Re04/25/12 Age/Sex: 51/M Unit#: [id number] Location: [address] [place] [address].O.B. : 60 SPEC #: [id number] ANTONINO: 04/25/12 STATUS: TERENCE REQ #: [id number] RECD: 04/25/12 [facility] [address]: Kevan Gonzales MD SOURCE: CLOTEST ENTR: 04/25/12-[address]: Nisa Cleaning [facility]: ORDERED: CLOTEST ACT WKST: MISC 04/26/12 #1 Procedure Result Verified Site > CLOTEST Final -0800 ML CLOTEST NEGATIVE ML - [facility] State Permit #[id number] [address] [place] [id number] DEPARTMENT OF PATHOLOGY, [address] [place] [address] [facility] Permit #[id number] Wyatt Lynn M.D. Exterminator Helper 57 ---- RUN DATE: 04/27/12 [facility] NMI LIVE PAGE 1 RUN TIME: 1504 Specimen Inquiry RUN USER: INTERFACE -- Name: WING MURCIA Acckathy#: [id number] Status: REG REF Re04/25/12 Age/Sex: 51/M Unit#: [id number] Location: [facility] : 60 -- Specimen: [id number] Spec Date:04/25/12 Dr: Kevan Gonzales MD Spec Type: SURGICAL P Received:04/26/12-407 Copies to: Anton Finch MD SPECIMEN BIOPSY ESOPHAGUS AT 35 CM. HISTORY POST-OP DIAGNOSIS: Hiatal hernia; erosive gastroesophageal reflux disease ; diverticulosis; average risk; anal stenosis CLINICAL INFORMATION: Reflux disease; screening colonoscopy GROSS DESCRIPTION The specimen is received in formalin labelled Wing Parker Casjaylan, Biopsy Esophagus at 35 cm., and consists of two brownlee soft tissue fragments measuring 0.5 x 0.3 x 0.2 cm. in aggregate. Submitted entirely, one cassette. DIAGNOSIS Esophagus, 35 cm., biopsy: A. 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 B. Reactive glandular changes. C. No dysplasia noted. Signed Electronically by: PARMINDER WHEELER MD 04/27/12 1501 -- -- DEPARTMENT OF PATHOLOGY, [address] [place] [id number] [facility] Permit #[id number] Parminder Wheeler M.D. Director Zoe Mazariegos M.D. Garbage Pick Up Man fauzia -- 58 CHOLESTEROL INTERPRETATION: Desirable: Less than 200 MG/DL Borderline-High Risk: 200-239 MG/DL High-Risk: 240 MG/DL and over 59 HDL INTERPRETATION: Undesirable: High Risk: Less than 40 MG/DL Desirable: Low Risk: Greater than 60 MG/DL 60 LDL INTERPRETATION: Low Risk Optimal Level: LDL Less than 100 MG/DL Near or Above Optimal: LDL 100-129 MG/DL Borderline High Risk: LDL 130-159 MG/DL High Risk: LDL 160-189 MG/DL Very High Risk: LDL Greater than 189 MG/DL 61 * SERUM LEVELS OF PSA MEASURED USING THE DANA JESUS ACCESS HYBRITECH IMMUNOASSAY SHOULD NOT BE INTERPRETED ABSOLUTE EVIDENCE OF THE PRESENCE OR ABSENCE OF DISEASE. THE PSA VALUE SHOULD BE USED IN CONJUNCTION WITH OTHER PERTINENT CLINICAL DIAGNOSTIC PROCEDURES. The values obtained with different assay methods or kits cannot be used interchangeably. 62 FASTING 63 Anion gap measurement may be of limited value in the presence of any alkalosis, especially in a combined acid base disorder. . 64 Note change in reference range as of 07/12/08. The change was based on recommendations from the [place] [employer]. 65 Please note change in reference range effective 08 . 66 A metabolite of Naproxen, O-desmethylnaproxen, has been shown to interfere with the [place] method for measuring total bilirubin. Samples from patients who have taken Naproxen have shown spurious elevation in total bilirubin levels. 67 Because ethnic data is not always readily available, this report includes an eGFR for both -Americans and non- Americans. The National Kidney Disease Education Program (NKDEP) does not endorse the use of the MDRD equation for patients that are not between the ages of 18 and 70, are , have extremes of body size, muscle mass, or nutritional status, or are non- or non-. According to the National Kidney Foundation, irrespective of diagnosis, the stage of the disease is based on the level of kidney function: Stage Description GFR(mL/min/1.73 m(2)) 1 Kidney damage with normal or decreased GFR 90 2 Kidney damage with mild decrease in GFR 60-89 3 Moderate decrease in GFR 30-59 4 Severe decrease in GFR 15-29 5 Kidney failure <15 (or dialysis) 68 CHOLESTEROL INTERPRETATION: Desirable: Less than 200 MG/DL Borderline-High Risk: 200-239 MG/DL High-Risk: 240 MG/DL and over 69 HDL INTERPRETATION: Undesirable: High Risk: Less than 40 MG/DL Desirable: Low Risk: Greater than 60 MG/DL 70 LDL INTERPRETATION: Low Risk Optimal Level: LDL Less than 100 MG/DL Near or Above Optimal: LDL 100-129 MG/DL Borderline High Risk: LDL 130-159 MG/DL High Risk: LDL 160-189 MG/DL Very High Risk: LDL Greater than 189 MG/DL 71 PLATELETS CLUMPED. UNABLE TO PERFORM ACCURATE COUNT. 72 CHOLESTEROL INTERPRETATION: Desirable: Less than 200 MG/DL Borderline-High Risk: 200-239 MG/DL High-Risk: 240 MG/DL and over 73 HDL INTERPRETATION: Undesirable: High Risk: Less than 40 MG/DL Desirable: Low Risk: Greater than 60 MG/DL 74 LDL INTERPRETATION: Low Risk Optimal Level: LDL Less than 100 MG/DL Near or Above Optimal: LDL 100-129 MG/DL Borderline High Risk: LDL 130-159 MG/DL High Risk: LDL 160-189 MG/DL Very High Risk: LDL Greater than 189 MG/DL 75 Anion gap measurement may be of limited value in the presence of any alkalosis, especially in a combined acid base disorder. . 76 Note change in reference range as of 07/12/08. The change was based on recommendations from the [place] [employer]. 77 Please note change in reference range effective 08 . 78 Anion gap measurement may be of limited value in the presence of any alkalosis, especially in a combined acid base disorder. . Procedures Date CPT Code Description Status Comment 04/25/2012 Colonoscopy Completed anal stenosis, mild tics, otherwise normal (P: repeat 10yrs) 01/10/2010 33389 Oximetry, Multiple Completed Determinations (Eg, During Exercise) 01/10/2010 73528 X-Ray Chest Two Views Completed 09/09/2007 50830 X-Ray Chest Two Views Completed Encounters Type Date Location Provider CPT E/M Dx Office Visit 02/01/2018 11:30a Main Office Anton Finch M.D. 00105 R07.9 F41.9 Office Visit 10/07/2017 11:45a Main Office Mc Ty D.O. 23530 J20.9 J01.00 Office Visit 07/23/2017 2:30p Main Office Anton Finch M.D. 56267 R42 F41.9 R45.1 H92.03 H90.3 H81.09 Z23 Office Visit 06/25/2017 2:30p Main Office Anton Finch M.D. 57362 R42 R11.2 F41.9 R45.1 M79.2 H92.03 Office Visit 06/08/2017 11:15a Main Office Anton Finch M.D. 24749 R42 R11.2 Office Visit 04/06/2017 2:15p Main Office Anton Finch M.D. 16886 J06.9 F41.9 Office Visit 03/03/2017 9:45a Main Office Anton Finch M.D. 37810 F41.9 M79.2 Office Visit 12/28/2016 2:30p Main Office Anton Finch M.D. 61410 F41.9 M79.2 R45.1 E78.00 Z71.89 Office Visit 09/18/2016 1:30p Main Office Anton Finch M.D. 54339 R05 R53.83 J01.90 Office Visit 06/23/2016 2:30p Main Office Anton Finch M.D. 80669 F41.9 M79.2 R45.1 E78.0 Office Visit 12/06/2015 2:30p Main Office Anton Finch M.D. 62310 F41.9 M79.2 E78.0 Office Visit 10/16/2015 3:00p Main Office Anton Finch M.D. 54453 F41.9 M79.2 E78.0 Office Visit 07/17/2015 3:00p Main Office Anton Finch M.D. 13263 300.00 780.52 729.5 782.0 272.0 Office Visit 05/15/2015 12:55p Main Office Anton Finch M.D. 41396 300.00 780.52 729.5 272.0 333.94 Office Visit 04/19/2015 1:30p Main Office Anton Finch M.D. 21686 300.00 780.52 729.5 Office Visit 02/25/2015 1:30p Main Office Anton Finch M.D. 44064 786.50 300.00 729.5 780.52 272.0 Office Visit 02/22/2015 9:20a Main Office Betty Mily, [facility] 70963 461.2 300.00 Office Visit 01/15/2015 9:30a Main Office Anton Finch M.D. 02545 729.5 300.00 780.52 Office Visit 11/27/2014 9:45a Main Office Anton Finch M.D. 98737 300.00 786.50 786.09 272.0 453.42 V58.61 Office Visit 10/31/2014 9:15a Main Office Anton Finch M.D. 44067 300.00 786.09 786.50 782.0 729.5 789.06 530.81 272.0 V75.9 Office Visit 10/26/2014 10:00a Main Office Anton Finch M.D. 36035 789.06 530.81 530.85 300.00 Office Visit 09/21/2014 10:00a Main Office Anton Finch M.D. 93223 453.42 300.00 V04.81 V58.61 V07.2 Office Visit 09/14/2014 1:45p Main Office Anton Finch M.D. 06355 453.42 V58.61 Office Visit 09/05/2014 4:30p Main Office Anton Finch M.D. 62613 729.5 453.42 278.00 Office Visit 08/12/2012 4:45p Main Office Anton Finch M.D. 37313 272.0 278.00 530.81 530.85 845.09 Office Visit 03/30/2012 4:00p Main Office Carlota Mcfadden 14833 272.0 272.8 278.00 Office Visit 01/30/2012 10:30a Main Office Darrin Waddell 11143 461.1 786.2 477.0 Office Visit 12/28/2011 2:00p Main Office Anton Finch M.D. 02871 V70.0 530.81 272.0 272.8 v06.1 v07.2 Office Visit 12/25/2011 1:45p Main Office Anton Finch M.D. 94217 461.1 461.0 Office Visit 11/17/2011 5:15p Main Office Anton Finch M.D. 94350 465.9 V76.51 780.79 780.60 Office Visit 01/30/2010 3:40p Main Office Darrin Waddell 52043 786.2 Office Visit 01/10/2010 2:00p Main Office Ramírez Bernal M.D. 22481 786.2 466.0 272.0 Office Visit 10/01/2009 3:15p Main Office Ramírez Bernal M.D. 09226 465.9 Office Visit 08/09/2009 4:30p [place] [address] 780.79 Office Visit 12/31/2008 1:15p [place] [address] 272.0 V70.0 604.90 530.81 278.00 Office Visit 12/18/2008 9:45a [place] [address] 604.90 Office Visit 11/27/2008 4:00p [place] [address] 604.90 Office Visit 10/12/2008 4:30p [place] [address] 461.1 Office Visit 08/14/2008 2:15p [place] [address] 726.32 Office Visit 02/28/2008 4:30p Main Office Roxanne Cheng 60308 786.2 780.52 461.0 Office Visit 01/31/2008 4:30p Main Office Prosper Roxanne PADILLA 95505 461.0 Office Visit 09/09/2007 3:15p Main Office Anton Finch M.D. 30193 786.2 780.79 Office Visit 09/24/2006 11:00a Main Office Prosper Roxanne PADILLA 26223 300.02 V04.81 Plan of Care Future Appointment(s):02/25/2018 1:45 pm - Anton Finch M.D. at Main [facility]3002/01/2018 - Anton Finch M.D.R07.9 Chest pain, unspecifiedNew Xrays: Cta, Chest, W/ & W/O ContrastComments:Pt was sent for D-Dimer wc we were called about and advised it was elevated. See triage re this. Arrangements were made for CTA chest wc was done this [place], did not show any PE. Per tech who called me w/ the result it showed some thickening of lower esophagus. I called pt this [place] to discuss the findings, noted I suspect the thickening of his esophagus is chronic and pt stated he was told about this in the past and had EGD to evaluate (see prior EGD report). Advised pt in the end I though his pain was most likely MSK, suggested intermittent ice and Aleve 1-2 tabs bid prn.Follow up:RTO 3-4 [id number] Anxiety disorder, unspecifiedNew Medication: Lorazepam 0.5 mgComments:Suspect he also has bipolar disorder, in light of manic /euphoric episodes on multiple antidepressants. Advised it was critical to get f /u care w/ psychiatrist, encourgaed him to return to Dr Ji even if he is going to transfer to a more local psychiatrist (he is considering Dr Ibarra; I also advised he consider [facility]). Advise it was ok to continue low dose prn lorazepam when anxiety and agitation arebad.
--- NOTE | 2018-02-15 09:38 | UC ---
Lower Extremity/Ankle HPI - HPI Summary HPI Summary: 57 yo male with left calf pain x 2 weeks no injury worse past 2 days not swollen or hot hx of DVT - History of Current Complaint Chief Complaint: UCLowerExtremity Stated Complaint: LEG PAIN Time Seen by Provider: 02/15/18 09:18 Hx Obtained From: Patient Onset/Duration: Gradual Onset, Lasting Weeks Severity Initially: Mild Severity Currently: Mild Pain Intensity: 4 Pain Scale Used: 0-10 Numeric Aggravating Factor(s): Nothing - when supine, Other Alleviating Factor(s): Nothing Able to Bear Weight: Yes - Allergies/Home Medications Allergies/Adverse Reactions: Allergies Allergy/AdvReac Type Severity Reaction Status Date / Time bee venom protein (honey bee) Allergy Intermediate Swelling Verified 02/15/18 08 :20 Seasonal Allergy Congestion Uncoded 12/21/17 09:00 Home Medications: Home Medications Desvenlafaxine Succinate [Pristiq] 25 mg PO DAILY 02/15/18 [History Confirmed ] cloNIDine TAB* [Catapres 0.1 MG TAB*] 0.1 mg PO DAILY 02/15/18 [History Confirmed 02/15/18] PMH/Surg Hx/FS Hx/Imm Hx Previously Healthy: Yes Cardiovascular History: Hypertension GI/ History: Other Other GI/ History: chronic LLQ abd pain being worked up Psychological History: Anxiety - Surgical History Surgical History: None Surgery Procedure, Year, and Place: n/a, no abdominal surgeries - Family History Known Family History: Positive: Hypertension - Social History Alcohol Use: Weekly Alcohol Amount: "Few times week - 2 DRINKS A TIME Substance Use Type: Marijuana, Prescribed Substance Use Comment - Amount & Last Used: MARIJUANA IN THE PAST Smoking Status (MU): Never Smoked Tobacco Review of Systems Constitutional: Negative Skin: Negative Eyes: Negative ENT: Negative Respiratory: Negative Cardiovascular: Negative Gastrointestinal: Abdominal Pain Genitourinary: Negative Motor: Negative Neurovascular: Negative Musculoskeletal: Myalgia Neurological: Negative Psychological: Negative Is Patient Immunocompromised?: No All Other Systems Reviewed And Are Negative: Yes Physical Exam Triage Information Reviewed: Yes Appearance: Well-Appearing, No Pain Distress, Well-Nourished Vital Signs: Initial Vital Signs Temp 99.5 F 02/15/18 08:29 Pulse 63 02/15/18 08:29 Resp 17 02/15/18 08:29 BP 103/59 02/15/18 08:29 Pulse Ox 100 02/15/18 08:29 Vital Signs Reviewed: Yes Eyes: Positive: Conjunctiva Clear ENT: Negative: Hearing grossly normal, Nasal congestion, Nasal drainage Neck: Positive: Supple, Nontender Respiratory: Positive: Lungs clear, Normal breath sounds, No respiratory distress Cardiovascular: Positive: RRR, No Murmur Abdomen Description: Positive: Soft. Negative: Nontender - slight LLQ abd tenderness, CVA Tenderness (R), CVA Tenderness (L) Bowel Sounds: Positive: Present Musculoskeletal Exam: Other - tender calf (l) Musculoskeletal: Positive: ROM Intact, No Edema Neurological Exam: Normal Neurological: Positive: Alert Psychological Exam: Normal Skin Exam: Normal Diagnostics - Radiology No standard instances Xray Interpretation: No Acute Changes - NO DVT/SOME VENOUS STATIS Radiology Interpretation Completed By: Radiologist Lower Extremity Course/Dx - Course Course Of Treatment: HAS COMPRESSION STOCKINGS AT HOME - Differential Dx/Diagnosis Provider Diagnoses: LEFT CALF PAIN OF UNCERTAIN CAUSE. VENOUS STATIS Discharge - Sign-Out/Discharge Documenting (check all that apply): Discharge - Discharge Plan Condition: Stable Disposition: HOME Patient Education Materials: Musculoskeletal Pain (ED) Referrals: Anton Magaña MD [Primary Care Provider] - 1 Week Additional Instructions: NO DVT TRY COMPRESSION STOCKINGS FOR VENOUS STATIS ALEVE OR ADVIL - Billing Disposition and Condition Condition: STABLE Disposition: HOME Images Front/Back of Body, Lg ([place]): 1 - 10 cm below tibial tubercule: R 39 cm L 38 cm 2 - 20 cm below tibial tubercle. R 28 cm L 27 cm
--- NOTE | 2018-02-15 10:27 | RAD ---
INDICATION: Pain and swelling. COMPARISON: February 04, 2015 TECHNIQUE: Duplex interrogation of the Lowerextremity was performed. FINDINGS: Deep veins: The common femoral, great saphenous, profunda femoris, proximal, mid, and distal deep femoral, popliteal, posterior tibial, and peroneal veins are patent. There is normal compressibility, augmentation, and phasic flow. Superficial veins: There are no findings of superficial thrombophlebitis. Popliteal fossa:There is no evidence of a popliteal cyst. Soft tissues:There are no soft tissue abnormalities. Other: There is venous stasis in the posterior calf veins IMPRESSION: NO EVIDENCE OF DEEP VENOUS THROMBOSIS. VENOUS STASIS IN THE CALF VEINS AT THE SITE OF TENDERNESS.
[2018-02-15 10:31] VITALS: BP 103/64
== END 2018-02-15 10:30 | disposition home or self-care (01) ==
LOC: UCEAST 08:16
DX: M79.662 Pain in left lower leg (principal); I87.8 Other specified disorders of veins; R10.32 Left lower quadrant pain; I10 Essential (primary) hypertension; F41.9 Anxiety disorder, unspecified; Z86.718 Personal history of other venous thrombosis and embolism
CPT/HCPCS: 99212; G0463

== ENCOUNTER 2018-02-17 16:37 | Emergency (ER) | payer OTHER ==
[2018-02-17 18:07] LABS: ABS Basophils 0.1 10^3/ul (0-0.2); ABS Eosinophils 0.1 10^3/ul (0-0.6); ABS Lymphocytes 1.8 10^3/ul (1.0-4.8); ABS Monocytes 0.5 10^3/ul (0-0.8); ABS Neutrophils 6.1 10^3/ul (1.5-7.7); ABS Nucleated RBC 0 10^3/ul; Eosinophil % 1.3 % (0-6); Hematocrit 39 % (42-52); Hemoglobin 13.3 g/dl (14.0-18.0); Lymphocyte % 20.8 % (25-47); Mean Corpuscular HGB Conc 34 g/dl (31-36); Mean Corpuscular Hemoglobin 29 pg (27-31); Mean Corpuscular Volume 84 fL (80-94); Mean Platelet Volume 8.7 um3 (7.4-10.4); Nucleated Red Blood Cells % 0.1; Platelet Count 229 10^3/ul (150-450); Red Blood Count 4.62 10^6/ul (4.0-5.4); Red Cell Distribution Width 13 % (10.5-15); White Blood Count 8.6 10^3/ul (3.5-10.8)
--- NOTE | 2018-02-17 18:14 | ED ---
Psychiatric Complaint - HPI Summary HPI Summary: Patient is a 37-year-old who presents to the emergency department for increased anxiety times several weeks. Patient states history of generalized anxiety disorder. He currently follows with a nurse practitioner psychiatrist. He states he recently stopped taking his Pristiq because it made him feel "high." Pt. states he has not slept well in 2 weeks. Pt. states he has been feel very anxious and angry recently. He has been admitted to the [facility] in the past for similar symptoms. He denies SI or HI. He denies drug or ETOH use. Pt. also notes that he has been trying to get off of his ativan and does not want to be dependent on it. Symptoms are moderate in severity. No current modifying factors. - History Of Current Complaint Chief Complaint: EDGeneral Time Seen by Provider: 02/17/18 17:02 - Allergies/Home Medications Allergies/Adverse Reactions: Allergies Allergy/AdvReac Type Severity Reaction Status Date / Time bee venom protein (honey bee) Allergy Intermediate Swelling Verified 02/15/18 08 :20 Seasonal Allergy Congestion Uncoded 12/21/17 09:00 Home Medications: Home Medications Desvenlafaxine [Desvenlafaxine ER] 50 mg PO QAM 02/17/18 [History Confirmed ] Dicyclomine CAP* [Bentyl CAP*] 20 mg PO TID PRN 02/17/18 [History Confirmed ] Gabapentin CAP(*) [Neurontin 100 mg CAP(*)] 100 mg PO TID 02/17/18 [History Confirmed 02/17/18] QUEtiapine TAB* [SEROquel TAB*] 12.5 mg PO Q4HR 02/17/18 [History Confirmed ] QUEtiapine XR TAB* [SEROquel Xr TAB*] 50 mg PO QAM 02/17/18 [History Confirmed 02/17/18] QUEtiapine XR TAB* [SEROquel Xr TAB*] 100 mg PO DAILY@1900 02/17/18 [History Confirmed 02/17/18] PMH/Surg Hx/FS Hx/Imm Hx Endocrine/Hematology History: Denies: Hx Diabetes, Hx Thyroid Disease Cardiovascular History: Reports: Hx Hypertension Denies: Hx Pacemaker/ICD Respiratory History: Denies: Hx Asthma, Hx Chronic Obstructive Pulmonary Disease (COPD) GI History: Reports: Hx Gastroesophageal Reflux Disease Denies: Hx Ulcer History: Denies: Hx Renal Disease Sensory History: Denies: Hx Hearing Aid Psychiatric History: Reports: Hx Anxiety - severe Denies: Hx Panic Disorder - Surgical History Surgery Procedure, Year, and Place: n/a, no abdominal surgeries Infectious Disease History: No Infectious Disease History: Denies: Hx Hepatitis, Hx Human Immunodeficiency Virus (HIV), Traveled Outside the [place] in Last 30 Days - Family History Known Family History: Positive: Hypertension - Social History Occupation: Employed Full-time Lives: With Family Alcohol Use: Weekly Alcohol Amount: "Few times week - 2 DRINKS A TIME Substance Use Type: Reports: Marijuana, Prescribed Substance Use Comment - Amount & Last Used: MARIJUANA IN THE PAST Smoking Status (MU): Never Smoked Tobacco Review of Systems - ROS Summary Review of Systems Summary: Constitutional: No fever, chills. Head/Face: No trauma. Neck: No swelling or pain. Eyes: No visual disturbances. ENT: No ear pain. No nasal discharge or bleeding. No throat pain/swelling. Heart: No chest pain. Lungs: No cough. No SOB. Abdomen: Chronic abd. pain MS: No truama. No leg swelling or pain. Skin: No rash. : No urgency frequency or dysuria. Neuro: No change in mental status. No umbness, tingling or weakness. Psych: Positive depression and anxiety. No suicidal or homicidal ideations. All other systems reviewed and are negative. Constitutional: Negative Cardiovascular: Negative Respiratory: Negative Positive: Abdominal Pain - Chronic . Negative: Vomiting, Diarrhea, Nausea Neurological: Negative Positive: Anxious, Depressed All Other Systems Reviewed And Are Negative: Yes Physical Exam - Summary Physical Exam Summary: Appearance: Pt. is awake and alert. Patient sitting up in bed, very anxious, cooperative. present. Skin: Warm, dry. Head/Face: No trauma. Normocephalic. Eyes: PERRLA. Neck: Full ROM. ENT: Nose without drainage. Oropharynx patent. Heart: Heart is a regular rate and rhythm. Lungs: Lungs are clear to auscultation bilaterally without adventitious sounds. Abdomen: Nondistended. Abdomen is soft throughout with mild diffuse tenderness. Rebound tenderness or guarding. No rigidity. MS/Extremity: Moving all 4 extremities. Neuro: Awake, alert. Cranial nerves II through XII grossly intact. Pscyh: Anxious. Triage Information Reviewed: Yes Vital Signs On Initial Exam: Initial Vitals Temp Pulse Resp BP Pulse Ox 97.4 F 81 20 82/67 98 02/17/18 16:43 02/17/18 16:43 02/17/18 16:43 02/17/18 16:43 02/17/18 16:43 Vital Signs Reviewed: Yes Appearance: Positive: Well-Appearing Skin: Positive: Warm, Dry Head/Face: Positive: Normal Head/Face Inspection Eyes: Positive: Normal Respiratory/Lung Sounds: Positive: Clear to Auscultation Cardiovascular: Positive: Normal, RRR Abdomen Description: Positive: Other: - Mild tenderness in all quadrants without rebound tenderness or guarding. No rigidity or evidence of acute abdomen Neurological: Positive: Normal, CN Intact II-III Diagnostics - Vital Signs Vital Signs Temp Pulse Resp BP Pulse Ox 02/17/18 16:43 97.4 F 81 20 98 - Laboratory Lab Results: Lab Results 02/17/18 Range/Units 17:57 WBC 8.6 (3.5-10.8) 10^3/ul RBC 4.62 (4.0-5.4) 10^6/ul Hgb 13.3 L (14.0-18.0) g/dl Hct 39 L (42-52) % MCV 84 (80-94) fL MCH 29 (27-31) pg MCHC 34 (31-36) g/dl RDW 13 (10.5-15) % Plt Count 229 (150-450) 10^3/ul MPV 8.7 (7.4-10.4) um3 Neut % (Auto) 71.5 (38-83) % Lymph % (Auto) 20.8 L (25-47) % [place] % (Auto) 5.8 (0-7) % Eos % (Auto) 1.3 (0-6) % Baso % (Auto) 0.6 (0-2) % Absolute Neuts (auto) 6.1 (1.5-7.7) 10^3/ul Absolute Lymphs (auto) 1.8 (1.0-4.8) 10^3/ul Absolute Monos (auto) 0.5 (0-0.8) 10^3/ul Absolute Eos (auto) 0.1 (0-0.6) 10^3/ul Absolute Basos (auto) 0.1 (0-0.2) 10^3/ul Absolute Nucleated RBC 0 10^3/ul Nucleated RBC % 0.1 Result Diagrams: 02/17/18 17:57 02/17/18 17:57 Lab Statement: Any lab studies that have been ordered have been reviewed, and results considered in the medical decision making process. Course/Dx - Course Course Of Treatment: Presenting presenting to the ER for a psychiatric evaluation. Medical screening examination was ordered and is unremarkable. Patient was evaluated by the therapist and psychiatry was consult. They feel patient will benefit from inpatient treatment. He was transferred to the flex unit for further evaluation and appropriate disposition. Patient was given his nighttime gabapentin per request. - Differential Dx/Clinical Impression Differential Diagnosis/HQI/PQRI: Positive: Acute Psychosis, Anxiety, Depression Provider Diagnosis: Anxiety, Depression Discharge - Sign-Out/Discharge Documenting (check all that apply): Sign-Out Patient Signing out patient TO: Killian Morgan - Discharge Plan Condition: Stable Discharge Disposition Comment: Pt. signed out to Dr. Morgan pending psych. evaluation. Referrals: Anton Magaña MD [Primary Care Provider] - - Billing Disposition and Condition Condition: STABLE
[2018-02-17 18:21] LABS: EGFR Non-African American 99.6 (>60)
[2018-02-17 18:29] LABS: Urine Appearance Clear; Urine Blood Negative (Negative); Urine Color Yellow; Urine Ketones Negative (Negative); Urine Protein Negative (Negative); Urine Specific Gravity 1.015 (1.010-1.030); Urine Urobilinogen Negative (Negative)
[2018-02-17 21:39] VITALS: BP 133/75
[2018-02-17] MEDS ORDERED: Gabapentin CAP(*) 300 MG PO ONE (21:44)
== END 2018-02-18 00:02 | disposition home or self-care (01) ==
LOC: ED 16:37
DX: F41.8 Other specified anxiety disorders (principal)
CPT/HCPCS: 36415; 80053; 80307; 80320; 80329; 81003; 84443; 85025; 99285; A9270-GY; G0480